=== PATIENT | female | born 1990 | race Caucasian/White ===

== ENCOUNTER 2022-10-02 20:45 | Observation (INO) ==
[2022-10-02 21:23] LABS: Partial Thromboplastin Ratio 1.1; Partial Thromboplastin Time 30.1 Seconds (21.0-31.0); Prothrombin Time 10.6 Seconds (9.0-12.0)
[2022-10-02 21:39] LABS: Basophils # (auto) 0.02 K/uL (0-0.2); Basophils % (auto) 0.2 %; Eosinophils # (auto) 0.02 K/uL (0-0.50); Eosinophils % (auto) 0.2 %; Hematocrit (blood only) 33.1 % (34.1-44.9); Hemoglobin 11.9 g/dl (12.0-16.0); Immature Granulocytes # (auto) 0.06 K/uL (0.00-0.02); Immature Granulocytes % (auto) 0.6 %; Lymphocytes # (auto) 0.64 K/uL (1.2-3.4); Lymphocytes % (auto) 6.4 %; Mean Corpuscular Hemoglobin 31.9 pg (25.0-34.0); Mean Corpuscular Volume 88.7 fL (80.0-100.0); Mean Platelet Volume 9.4 fL (9.4-12.3); Monocytes # (auto) 0.83 K/uL (0.24-0.82); Monocytes % (auto) 8.3 %; Neutrophils # (auto) 8.47 K/uL (1.4-6.5); Neutrophils % (auto) 84.3 %; Platelet Count 249 K/uL (130-400); RDW Coefficient of Variation 13.2 % (11.5-14.5); RDW Standard Deviation 42.5 fL (36.4-46.3); Red Blood Count 3.73 M/uL (3.93-5.22); Troponin I High Sensitivity 35.9 pg/ml (0-14); White Blood Count 10.04 K/ul (4.8-10.8)
[2022-10-02 21:48] LABS: Albumin Globulin Ratio 1.2 (0.9-2); BUN Creatinine Ratio 9.3 (10-20); Bilirubin,Total 0.4 mg/dl (0.2-1.0); Calcium 8.9 mg/dl (8.5-10.1); Creatinine Clr Calc Pharmacy 126.3 ml/min; Est GFR (African American) 146.8 ml/min; Est GFR (Non-African American) 126.6 ml/min; Globulin 3.3 gm/dl (2.5-4.0); Potassium 3.2 mmol/L (3.5-5.1); Total Protein 7.3 gm/dl (6.0-8.3)
--- NOTE | 2022-10-02 22:02 | Emergency Department Note ---
History of Present Illness General Chief complaint: Hyperventilation Stated complaint: SOB,CHEST PAIN,15 WKS Time Seen by Provider: 10/02/22 21:58 History of Present Illness Maximum Pain Intensity: 5 This 32-year-old female patient who is 15 weeks presents to the em ergency department for evaluation of shortness of breath, tachycardia, and chest pain. She started with cold like symptoms yesterday with cough and congestion. Temp 99F max. She states that she took Sudafed this morning at 10 am and has had a heart rate of 130 bpm most of the day. Also complaining of chest pain that feels "sort of" like heartburn that started at 2 PM today along with nausea and 1 episode of vomiting. Her heart beats faster when she goes up the steps and will feel more SOB with activity, but no SOB at rest. She rates her pain as sharp and 5/10. No history of any heart problems. Grandfather with multiple MIs with his first one in his late 60's. No first degree relatives with MIs or heart problems. No personal or family history of blood clots or bleeding disorders. She does not smoke. Denies any recent long car or plane rides or any recent injury or trauma. Her son and parents are also sick right now as well. She follows with Shalini Pierce [employer] and everything has been going well with the per patient. She denies any vaginal bleeding or pelvic pain. Denies any abdominal pain. Home Medications Medication Instructions Recorded Confirmed Type prenat.vits,hector,[id number] 1 tab PO DAILY 08/10/22 10/03/22 History acetaminophen 500 mg tablet 1,000 mg PO Q6H PRN Pain 10/03/22 10/03/22 History (Tylenol Extra Strength) pseudoephedrine HCl 120 mg 120 mg PO Q12H PRN .. 10/03/22 10/03/22 History tablet,extended release (Sudafed 12 Hour) Allergies Allergy/AdvReac Type Severity Reaction Status Date / Time Penicillins Allergy Unknown Verified 10/03/22 02:49 Past Med/Surg History Medical History (Updated 10/03/22 @ 04:13 by Milana Gallego PA-C) Hx of varicella Family History Father Anemia Cirrhosis Grandmother (Maternal) Brain cancer Grandmother (Paternal) Breast cancer Grandfather (Maternal) Heart disease Mother Hypertension Social History Smoking Status: Never smoker Hx Alcohol Use: No Hx Substance Use: No Preferred Language: Lithuanian Presales Senior Specialist Required: No Beliefs That Will Affect Care: None marital status: marital status details: Abdullahi Hussein ([phone] Current Living Situation: Spouse Current Living Situation Comment: lives with spouse, son, cats-spouse changing litter current occupational status: employed current occupation: [employer] Feels Safe at Home: Yes Assistive Devices: Glasses Review of Systems See HPI for pertinent positives & negatives. and A total of 10 systems reviewed and were otherwise negative Physical Exam Vital Signs Vital Signs - 24 hr 10/02/22 20:48 10/02/22 20:51 10/02/22 22:22 Temperature 37 C Temperature Source Temporal Artery Scan Pulse Rate 134 H Pulse Rate [Apical] 117 H Pulse Rate from SpO2 Sensor Pulse Rhythm Regular Pulse Strength Normal Respiratory Rate 18 18 Respiratory Effort / Characteristics Non-Labored Spontaneous Non-Labored Spontaneous Respiratory Depth Normal Normal Respiratory Pattern Regular Regular Blood Pressure Blood Pressure [Right Arm] 123/82 Blood Pressure Mean Blood Pressure Mean [Right Arm] 95 Blood Pressure Position Sitting Pulse Oximetry 100 99 Oxygen Delivery Method Room Air Room Air Sepsis Recent Fever Within 48 Hours Yes Sepsis New/Unexplained Change in Mental Status N/A Sepsis Action Taken by Nursing No Action Required 10/02/22 22:22 10/02/22 22:22 10/02/22 23:00 Temperature Temperature Source Pulse Rate 113 H Pulse Rate [Apical] Pulse Rate from SpO2 Sensor Pulse Rhythm Pulse Strength Respiratory Rate 18 Respiratory Effort / Characteristics Respiratory Depth Respiratory Pattern Blood Pressure 117/84 Blood Pressure [Right Arm] Blood Pressure Mean 95 Blood Pressure Mean [Right Arm] Blood Pressure Position Pulse Oximetry 98 98 Oxygen Delivery Method Room Air Sepsis Recent Fever Within 48 Hours Sepsis New/Unexplained Change in Mental Status Sepsis Action Taken by Nursing 10/02/22 23:00 10/02/22 23:10 10/02/22 23:53 Temperature Temperature Source Pulse Rate 116 H 116 H Pulse Rate [Apical] Pulse Rate from SpO2 Sensor 113 H 116 H 124 H Pulse Rhythm Pulse Strength Respiratory Rate 19 15 Respiratory Effort / Characteristics Respiratory Depth Respiratory Pattern Blood Pressure Blood Pressure [Right Arm] Blood Pressure Mean Blood Pressure Mean [Right Arm] Blood Pressure Position Pulse Oximetry 100 100 98 Oxygen Delivery Method Sepsis Recent Fever Within 48 Hours Sepsis New/Unexplained Change in Mental Status Sepsis Action Taken by Nursing 10/03/22 00:00 10/03/22 00:10 10/03/22 00:20 Temperature Temperature Source Pulse Rate Pulse Rate [Apical] Pulse Rate from SpO2 Sensor 121 H 121 H 119 H Pulse Rhythm Pulse Strength Respiratory Rate Respiratory Effort / Characteristics Respiratory Depth Respiratory Pattern Blood Pressure Blood Pressure [Right Arm] Blood Pressure Mean Blood Pressure Mean [Right Arm] Blood Pressure Position Pulse Oximetry 99 100 99 Oxygen Delivery Method Sepsis Recent Fever Within 48 Hours Sepsis New/Unexplained Change in Mental Status Sepsis Action Taken by Nursing 10/03/22 01:07 10/03/22 01:10 10/03/22 01:20 Temperature Temperature Source Pulse Rate 125 H 121 H 122 H Pulse Rate [Apical] Pulse Rate from SpO2 Sensor 127 H 124 H 126 H Pulse Rhythm Pulse Strength Respiratory Rate 17 20 Respiratory Effort / Characteristics Respiratory Depth Respiratory Pattern Blood Pressure Blood Pressure [Right Arm] Blood Pressure Mean Blood Pressure Mean [Right Arm] Blood Pressure Position Pulse Oximetry 98 100 99 Oxygen Delivery Method Sepsis Recent Fever Within 48 Hours Sepsis New/Unexplained Change in Mental Status Sepsis Action Taken by Nursing 10/03/22 01:30 10/03/22 01:30 Temperature Temperature Source Pulse Rate 120 H Pulse Rate [Apical] Pulse Rate from SpO2 Sensor 119 H Pulse Rhythm Pulse Strength Respiratory Rate 20 Respiratory Effort / Characteristics Respiratory Depth Respiratory Pattern Blood Pressure 122/74 Blood Pressure [Right Arm] Blood Pressure Mean 90 Blood Pressure Mean [Right Arm] Blood Pressure Position Pulse Oximetry 100 Oxygen Delivery Method Sepsis Recent Fever Within 48 Hours Sepsis New/Unexplained Change in Mental Status Sepsis Action Taken by Nursing VITALS: Vitals are noted on the nurse's note and reviewed by myself. GENERAL: 32-year-old female, in no acute distress, non-diaphoretic, well- developed well-nourished. SKIN: Capillary refill <2 sec. No tenting of the skin. HEAD: Normocephalic, atraumatic. EARS: External auditory canals clear, tympanic membranes pearly irvin without erythema or effusion bilaterally. EYES: PERRLA. EOMI. Conjunctivae without injection, sclerae without icterus. NOSE: Patent without discharge. MOUTH: Mucous membranes moist. Uvula midline. Airway patent. Pharynx without erythema or edema. No exudate. NECK: Supple without nuchal rigidity. No lymphadenopathy. HEART: Tachycardic without murmurs gallops or rubs. LUNGS: Clear to auscultation bilaterally without wheezes, rales or rhonchi. No retractions or accessory muscle use. ABDOMEN: Positive bowel sounds x 4. Gravid with normal tympanic percussion. Soft, nontender, without masses or organomegaly. Anand sign negative. No guarding or rebound tenderness. No focal RLQ or LLQ tenderness. MUSCULOSKELETAL: No gross musculoskeletal defects. No calf tenderness. Negative Homans' sign. NEURO: Patient was alert and oriented to person place and time. No focal neurological deficits. Course Administered Medications Lactated Ringer's (Lr) 1,000 mls @ 200 mls/hr IV .Q5H ONE Stop: 10/03/22 07:27 Last Admin: 10/03/22 02:45 Dose: 200 mls/hr Documented By: ABIOLA Magnesium Sulfate/Dextrose (Magnesium Sulfate / D5w) 1 gm in 100 mls @ 50 mls/hr IV Q2H DENICE Stop: 10/03/22 07:29 Last Admin: 10/03/22 04:04 Dose: 50 mls/hr Documented By: ABIOLA Discontinued Medications Sodium Chloride (Nss 1000ml) 1,000 mls @ 999 mls/hr IV .Q1H1M ONE Stop: 10/02/22 23:16 Last Infusion: 10/02/22 23:22 Dose: 0 mls/hr Documented By: Admin: 10/02/22 22:34 Dose: 999 mls/hr Documented By: JAMES Ioversol (Optiray 320 500ml) 105 ml IV ONCE ONE Stop: 10/03/22 01:32 Last Admin: 10/03/22 01:32 Dose: 105 ml Documented By: KEELY Ondansetron HCl (Ondansetron Inj 2 Mg/Ml 2 Ml Vial) 4 mg IV NOW STA Stop: 10/02/22 22:20 Last Admin: 10/02/22 22:34 Dose: 4 mg Documented By: JAMES Potassium Chloride (Potassium Chloride Pwd 20 Meq Pack) 40 meq PO NOW STA Stop: 10/03/22 02:23 Last Admin: 10/03/22 02:45 Dose: 40 meq Documented By: ABIOLA Potassium Chloride (Potassium Chloride Pwd 20 Meq Pack) 40 meq PO ONE ONE Stop: 10/03/22 04:01 Last Admin: 10/03/22 04:04 Dose: 40 meq Documented By: ABIOLA Medical Decision Making Differential Diagnosis Differential diagnosis includes angina, MA, pericarditis, myocarditis, aortic dissection, pleurisy, pneumothorax, PE, pneumonia, pneumomediastinum, esophagitis, esophageal spasm, GERD, perforated esophagus, perforated duodenal/gastric ulcer, pancreatitis, cholecystitis, costochondritis, musculoskeletal, bronchitis, URI, COVID, influenza, RSV, or others. Laboratory Data Attestation: I reviewed the patient's lab results. Result diagrams: 10/02/22 21:00 10/02/22 21:00 Lab Results 10/02/22 10/02/22 10/02/22 Range/Units 21:00 21:00 21:00 WBC 10.04 (4.8-10.8) K/ul RBC 3.73 L (3.93-5.22) M/uL Hgb 11.9 L (12.0-16.0) g/dl Hct 33.1 L (34.1-44.9) % MCV 88.7 (80.0-100.0) fL MCH 31.9 (25.0-34.0) pg MCHC 36.0 (32.0-36.0) g/dL RDW Std Deviation 42.5 (36.4-46.3) fL RDW Coeff of Marie 13.2 (11.5-14.5) % Plt Count 249 (130-400) K/uL MPV 9.4 (9.4-12.3) fL Immature Gran % (Auto) 0.6 % Neut % (Auto) 84.3 % Lymph % (Auto) 6.4 % [place] % (Auto) 8.3 % Eos % (Auto) 0.2 % Baso % (Auto) 0.2 % Neut # (Auto) 8.47 H (1.4-6.5) K/uL Lymph # (Auto) 0.64 L (1.2-3.4) K/uL [place] # (Auto) 0.83 H (0.24-0.82) K/uL Eos # (Auto) 0.02 (0-0.50) K/uL Baso # (Auto) 0.02 (0-0.2) K/uL Immature Gran # (Auto) 0.06 H (0.00-0.02) K/uL PT 10.6 (9.0-12.0) Seconds INR 1.0 (0.9-1.1) APTT 30.1 (21.0-31.0) Seconds PTT Ratio 1.1 D-Dimer (0-500) ug/L FEU Sodium 132 L (136-145) mmol/L Potassium 3.2 L (3.5-5.1) mmol/L Chloride 101 (98-107) mmol/L Carbon Dioxide 22 (21-32) mmol/L Anion Gap 9 (3-11) BUN 5 L (6-23) mg/dl Creatinine 0.54 L (0.6-1.2) mg/dl Est Cr Clr Drug Dosing 126.3 ml/min Est GFR ( Amer) 146.8 ml/min Est GFR (Non-Af Amer) 126.6 ml/min BUN/Creatinine Ratio 9.3 L (10-20) Glucose 109 H (70-99(Fasting)) mg/dl Calcium 8.9 (8.5-10.1) mg/dl Magnesium (1.7-2.4) mg/dl Total Bilirubin 0.4 (0.2-1.0) mg/dl AST 13 (13-39) U/L ALT 10 (7-52) U/L Alkaline Phosphatase 39 (34-104) U/L Troponin I High Sens 35.9 H (0-14) pg/ml Total Protein 7.3 (6.0-8.3) gm/dl Albumin 4.0 (3.4-5.0) gm/dl Globulin 3.3 (2.5-4.0) gm/dl Albumin/Globulin Ratio 1.2 (0.9-2) TSH (0.300-4.500) uIu/ml Urine Color Urine Appearance (Clear) Urine pH (4.5-7.5) Ur Specific [place] (1.000-1.030) Urine Protein (Negative) Urine Glucose (UA) (Negative) Urine Ketones (Negative) Urine Blood (Negative) Urine Nitrite (Negative) Urine Bilirubin (Negative) Urine Urobilinogen (Negative) Ur Leukocyte Esterase (Negative) Urine WBC (Auto) (0-5) /hpf Urine RBC (Auto) (0-4) /hpf U Hyaline Cast (Auto) (0-5) /lpf U Epithel Cells (Auto) (0-5) /lpf Urine Bacteria (Auto) (Negative) SARS-CoV-2 (PCR) (Negative) Influenza Type A (PCR) (Neg) Influenza Type B (PCR) (Neg) RSV (RT-PCR) (Neg) 10/02/22 10/02/22 10/02/22 Range/Units 21:00 22:30 22:41 WBC (4.8-10.8) K/ul RBC (3.93-5.22) M/uL Hgb (12.0-16.0) g/dl Hct (34.1-44.9) % MCV (80.0-100.0) fL MCH (25.0-34.0) pg MCHC (32.0-36.0) g/dL RDW Std Deviation (36.4-46.3) fL RDW Coeff of Marie (11.5-14.5) % Plt Count (130-400) K/uL MPV (9.4-12.3) fL Immature Gran % (Auto) % Neut % (Auto) % Lymph % (Auto) % [place] % (Auto) % Eos % (Auto) % Baso % (Auto) % Neut # (Auto) (1.4-6.5) K/uL Lymph # (Auto) (1.2-3.4) K/uL [place] # (Auto) (0.24-0.82) K/uL Eos # (Auto) (0-0.50) K/uL Baso # (Auto) (0-0.2) K/uL Immature Gran # (Auto) (0.00-0.02) K/uL PT (9.0-12.0) Seconds INR (0.9-1.1) APTT (21.0-31.0) Seconds PTT Ratio D-Dimer 690 H* (0-500) ug/L FEU Sodium (136-145) mmol/L Potassium (3.5-5.1) mmol/L Chloride (98-107) mmol/L Carbon Dioxide (21-32) mmol/L Anion Gap (3-11) BUN (6-23) mg/dl Creatinine (0.6-1.2) mg/dl Est Cr Clr Drug Dosing ml/min Est GFR ( Amer) ml/min Est GFR (Non-Af Amer) ml/min BUN/Creatinine Ratio (10-20) Glucose (70-99(Fasting)) mg/dl Calcium (8.5-10.1) mg/dl Magnesium (1.7-2.4) mg/dl Total Bilirubin (0.2-1.0) mg/dl AST (13-39) U/L ALT (7-52) U/L Alkaline Phosphatase (34-104) U/L Troponin I High Sens (0-14) pg/ml Total Protein (6.0-8.3) gm/dl Albumin (3.4-5.0) gm/dl Globulin (2.5-4.0) gm/dl Albumin/Globulin Ratio (0.9-2) TSH 1.164 (0.300-4.500) uIu/ml Urine Color Urine Appearance (Clear) Urine pH (4.5-7.5) Ur Specific [place] (1.000-1.030) Urine Protein (Negative) Urine Glucose (UA) (Negative) Urine Ketones (Negative) Urine Blood (Negative) Urine Nitrite (Negative) Urine Bilirubin (Negative) Urine Urobilinogen (Negative) Ur Leukocyte Esterase (Negative) Urine WBC (Auto) (0-5) /hpf Urine RBC (Auto) (0-4) /hpf U Hyaline Cast (Auto) (0-5) /lpf U Epithel Cells (Auto) (0-5) /lpf Urine Bacteria (Auto) (Negative) SARS-CoV-2 (PCR) POSITIVE A* (Negative) Influenza Type A (PCR) Negative (Neg) Influenza Type B (PCR) Negative (Neg) RSV (RT-PCR) Negative (Neg) 10/02/22 10/02/22 10/03/22 Range/Units 22:41 22:41 Unknown WBC (4.8-10.8) K/ul RBC (3.93-5.22) M/uL Hgb (12.0-16.0) g/dl Hct (34.1-44.9) % MCV (80.0-100.0) fL MCH (25.0-34.0) pg MCHC (32.0-36.0) g/dL RDW Std Deviation (36.4-46.3) fL RDW Coeff of Marie (11.5-14.5) % Plt Count (130-400) K/uL MPV (9.4-12.3) fL Immature Gran % (Auto) % Neut % (Auto) % Lymph % (Auto) % [place] % (Auto) % Eos % (Auto) % Baso % (Auto) % Neut # (Auto) (1.4-6.5) K/uL Lymph # (Auto) (1.2-3.4) K/uL [place] # (Auto) (0.24-0.82) K/uL Eos # (Auto) (0-0.50) K/uL Baso # (Auto) (0-0.2) K/uL Immature Gran # (Auto) (0.00-0.02) K/uL PT (9.0-12.0) Seconds INR (0.9-1.1) APTT (21.0-31.0) Seconds PTT Ratio D-Dimer (0-500) ug/L FEU Sodium (136-145) mmol/L Potassium (3.5-5.1) mmol/L Chloride (98-107) mmol/L Carbon Dioxide (21-32) mmol/L Anion Gap (3-11) BUN (6-23) mg/dl Creatinine (0.6-1.2) mg/dl Est Cr Clr Drug Dosing ml/min Est GFR ( Amer) ml/min Est GFR (Non-Af Amer) ml/min BUN/Creatinine Ratio (10-20) Glucose (70-99(Fasting)) mg/dl Calcium (8.5-10.1) mg/dl Magnesium 1.5 L (1.7-2.4) mg/dl Total Bilirubin (0.2-1.0) mg/dl AST (13-39) U/L ALT (7-52) U/L Alkaline Phosphatase (34-104) U/L Troponin I High Sens 70.4 H* D (0-14) pg/ml Total Protein (6.0-8.3) gm/dl Albumin (3.4-5.0) gm/dl Globulin (2.5-4.0) gm/dl Albumin/Globulin Ratio (0.9-2) TSH (0.300-4.500) uIu/ml Urine Color Yellow Urine Appearance Clear (Clear) Urine pH 6.5 (4.5-7.5) Ur Specific [place] 1.004 (1.000-1.030) Urine Protein Negative (Negative) Urine Glucose (UA) Negative (Negative) Urine Ketones 1+ H (Negative) Urine Blood Negative (Negative) Urine Nitrite Negative (Negative) Urine Bilirubin Negative (Negative) Urine Urobilinogen Negative (Negative) Ur Leukocyte Esterase Trace H (Negative) Urine WBC (Auto) 1-5 (0-5) /hpf Urine RBC (Auto) 0-4 (0-4) /hpf U Hyaline Cast (Auto) 0 (0-5) /lpf U Epithel Cells (Auto) 20-30 H (0-5) /lpf Urine Bacteria (Auto) Negative (Negative) SARS-CoV-2 (PCR) (Negative) Influenza Type A (PCR) (Neg) Influenza Type B (PCR) (Neg) RSV (RT-PCR) (Neg) Imaging Data Radiologist's Impression: Venous Doppler Study 10/02/22 22:16 ULTRASOUND BILATERAL LOWER EXTREMITY VENOUS CLINICAL HISTORY: Atypical chest pain. Dyspnea. . Clinical concern for deep venous thrombosis. COMPARISON STUDY: No priors. TECHNIQUE: Real-time, grayscale, and color Doppler sonography of the deep veins of the right and left lower extremity was performed from the inguinal crease to the calf. Compression and augmentation were utilized. FINDINGS: There is no sonographic evidence of deep venous thrombosis identified in the right or left lower extremity. The common femoral, superficial femoral, and popliteal veins are patent and normally compressible bilaterally. The greater saphenous vein and the profunda femoris vein at the junction with the common femoral vein are clear in both legs. The visualized calf veins are patent bilaterally. IMPRESSION: There is no sonographic evidence of deep venous thrombosis identified in the right or left lower extremity. ACT 112: Negative or not required by law. Electronically signed by: Everette Peñaloza M.D. 10/02/2022 11:52 PM Preliminary Findings Only See Final Report For Complete Findings CT CHEST With Contrast: There is reasonable opacification of the pulmonary arterial tree, no central pulmonary arterial filling defect is seen. There is no dense focal consolidation, pleural effusion, or pneumothorax. No acute pathology is identified thorax. Radiologist: Jeramy Elizalde MD Study ready at 01:38 and initial results transmitted at 01:46 MDM Narrative I examined the patient. She was given 1 L normal saline solution bolus as well as Zofran 4 mg IV. EKG was interpreted by myself as sinus tachycardia at [address] or T wave changes. Continuous shelter monitor: Order was placed for continuous shelter monitor. Patient was placed on the shelter monitor and continuous pulse ox. Patient was noted to be in normal sinus rhythm at an initial rate of 128 bpm. heart tones 164. Hemoglobin slightly low at 11.9, but CBC otherwise without significant abnormalities. Coags normal. Sodium and potassium low at 132 and 3.2. CMP otherwise essentially unremarkable. Initial high-sensitivity troponin elevated at 35.9 with a 2-hour repeat increased at 70.4. D-dimer elevated at 690. I had a meaningful discussion about this patient with Dr. Hui who agrees with my assessment and the treatment plan. Ultrasound of the bilateral lower extremities were negative for DVT. CT scan of the chest with contrast was negative for PE. The patient was positive for COVID, but negative for RSV and influenza. The patient's heart rate continued to remain in the 120s during her stay. She still complained of some shortness of breath and nasal congestion, but the chest pain did improve after the Zofran and fluids. I spoke with the on-call hospitalist who agreed to admit the patient for further evaluation and treatment. Please refer to their dictation for further details. The patient's care was transferred to the hospitalist in stable condition. Impression & Plan COVID-19, Elevated troponin, Elevated d-dimer, SOB (shortness of breath), Chest pain, Tachycardia, 15 weeks gestation of Discharge Plan Visit Data Chief Complaint: Hyperventilation Stated Complaint: SOB,CHEST PAIN,15 WKS ED Provider: Jeffry Hui ED Midlevel Provider: Milana Gallego Discharge Problem: COVID-19, Elevated troponin, Elevated d-dimer, SOB (shortness of breath), Chest pain, Tachycardia, 15 weeks gestation of Patient Disposition: Admitted As Inpatient Condition: Good Prescriptions Prescriptions: No Action prenat.vits,hector,[id number] Tablet 1 tab PO DAILY pseudoephedrine HCl [Sudafed 12 Hour] 120 mg Tablet Extended Release 120 mg PO Q12H PRN (Reason: ..) acetaminophen [Tylenol Extra Strength] 500 mg Tablet 1,000 mg PO Q6H PRN (Reason: Pain) Referrals Referrals: Ruma Sears DO [Primary Care Provider] - : Chest pain Qualifiers: Chest pain type: unspecified Qualified Code(s): R07.9 - Chest pain, unspecified
[2022-10-02] MEDS ORDERED: SODIUM CHLORIDE 0.9% 1000ML 1,000 ML IV ONE (22:16)
[2022-10-02] MEDS ORDERED: ONDANSETRON INJ 2 MG/ML 2 ML VIAL IV STA (22:19)
[2022-10-02 23:25] LABS: D Dimer 690 ug/L FEU (0-500)
--- NOTE | 2022-10-02 23:54 | Ultrasound Report ---
ULTRASOUND BILATERAL LOWER EXTREMITY VENOUS CLINICAL HISTORY: Atypical chest pain. Dyspnea. . Clinical concern for deep venous thrombosis . COMPARISON STUDY: No priors. TECHNIQUE: Real-time, grayscale, and color Doppler sonography of the deep veins of the right and left lower extremity was performed from the inguinal crease to the calf. Compression and augmentation wer e utilized. FINDINGS: There is no sonographic evidence of deep venous thrombosis identified in the right or left lower extremity. The common femoral, superficial femoral, and popliteal veins are patent and normally compressible bilaterally. The greater saphenous vein and the profunda femoris vein at the junction w ith the common femoral vein are clear in both legs. The visualized calf veins are patent bilaterally. IMPRESSION: There is no sonographic evidence of deep venous thrombosis identified in the right or lef t lower extremity. ACT 112: Negative or not required by law. Electronically signed by: Everette Peñaloza M.D. 10/02/2022 11:52 PM
[2022-10-03 00:38] LABS: Appearance Urine Clear (Clear); Bacteria Urine Automated Negative (Negative); Bilirubin Urine Negative (Negative); Blood Urine Negative (Negative); Cast Urine Automated 0 /lpf (0-5); Color Urine Yellow; Epithelial Cell Urine Auto 20-30 /lpf (0-5); Glucose Urine UA Negative (Negative); Ketones Urine 1+ (Negative); Leukocyte Esterase Urine Trace (Negative); Nitrite Urine Negative (Negative); Protein Urine Negative (Negative); RBC Urine Automated 0-4 /hpf (0-4); Specific Gravity Urine 1.004 (1.000-1.030); Urobilinogen Urine Negative (Negative); pH Urine 6.5 (4.5-7.5)
[2022-10-03] MEDS ORDERED: OPTIRAY 320 500ml IV ONE (01:31)
[2022-10-03 02:04] LABS: Influenza A virus by PCR Negative (Neg); Influenza B virus by PCR Negative (Neg); RSV by PCR Negative (Neg)
[2022-10-03 02:16] LABS: SARS CoV2 RNA(COVID-19) Ceph POSITIVE (Negative)
[2022-10-03] MEDS ORDERED: POTASSIUM CHLORIDE PWD 20 MEQ PACK PO STA (02:22)
[2022-10-03] MEDS ORDERED: LACTATED RINGER'S 1,000 ML IV ONE (02:28)
--- NOTE | 2022-10-03 02:28 | History & Physical Report ---
Date of Service October 03, 2022 Assessment & Plan (1) Chest pain: Plan: Chest pain secondary to tachycardia secondary to clinical dehydration from COVID-19 illness and decongestant intake Troponin elevation secondary to above Hypokalemia secondary to decreased p.o. intake, emesis secondary to viral illness 16 weeks AOG OBS PCU Follow troponin TTE Supportive management for patient's COVID 19 illness Patient counseled to avoid adrenergic containing decongestant preparations such as Sudafed given sensitivity and propensity for tachycardia IVF, replace electrolytes OB consult Re: check DVT prophylaxis. SCDs Full code Text document was generated using [employer] voice recognition software. It may contain grammatical or spelling errors. Kindly contact undersigned for clarification of any documentation item in question. History of Present Illness Chief Complaint: Chest Pain, shortness of breath Primary Care Provider: Ruma Sears, History obtained from patient, family, and records. No significant medical history. Patient currently at 16 weeks AOG. Last confinement under service July 2020 for term status post vaginal delivery. 2 days history of cold symptoms, dry cough and congestion. Poor appetite Sick family contacts. Patient completed COVID-19 vaccination. Yesterday morning, patient took 1 dose of Sudafed for congestion. Patient later noted heartburn like chest pain associated with shortness of breath and palpitations. Nausea, emesis at the emergency room. 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 Required: No Beliefs That Will Affect Care: None marital status: marital status details: Abdullahi Hussein (35) [phone] Current Living Situation: Spouse Current Living Situation Comment: lives with spouse, son, cats-spouse changing litter current occupational status: employed 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 Feels Safe at Home: Yes Assistive Devices: Glasses Review of Systems Review of Systems: As per HPI, all other systems reviewed and negative Physical Exam Physical Exam: GENERAL: Comfortable, pleasant, no respiratory distress SKIN: Pallor, warm HEENT: Bespectacled, pale palpebral conjunctivae, no ptosis, dry buccal mucosa NECK : Supple, no tenderness CHEST : CTA, no tenderness HEART : Tachycardic, no obvious murmurs ABDOMEN: Some distention, nontender EXTREMITIES : No LE swelling/tenderness, no other conspicuous deformities noted NEUROLOGIC : Coherent, no facial asymmetry, no other gross focality Results & Data Results & Data ([facility]) Vital Signs (Past 12 Hours) Vital Signs Temp Pulse Pulse Resp BP BP Pulse Ox 10/03/22 01:30 120 H 20 100 10/03/22 01:30 122/74 10/03/22 01:20 122 H 20 99 10/03/22 01:10 121 H 17 100 10/03/22 01:07 125 H 98 10/03/22 00:20 99 10/03/22 00:10 100 10/03/22 00:00 99 10/02/22 23:53 98 10/02/22 23:10 116 H 15 100 10/02/22 23:00 116 H 19 100 10/02/22 23:00 117/84 10/02/22 22:22 113 H 18 98 10/02/22 22:22 98 10/02/22 22:22 117 H 18 123/82 99 10/02/22 20:51 10/02/22 20:48 37 C 134 H 18 100 O2 Del Method 10/03/22 01:30 10/03/22 01:30 10/03/22 01:20 10/03/22 01:10 10/03/22 01:07 10/03/22 00:20 10/03/22 00:10 10/03/22 00:00 10/02/22 23:53 10/02/22 23:10 10/02/22 23:00 10/02/22 23:00 10/02/22 22:22 10/02/22 22:22 Room Air 10/02/22 22:22 10/02/22 20:51 Room Air 10/02/22 20:48 Room Air Laboratory Results Laboratory Results WBC 10.04 K/ul (4.8-10.8) 10/02/22 21:00 RBC 3.73 M/uL (3.93-5.22) L 10/02/22 21:00 Hgb 11.9 g/dl (12.0-16.0) L 10/02/22 21:00 Hct 33.1 % (34.1-44.9) L 10/02/22 21:00 MCV 88.7 fL (80.0-100.0) 10/02/22 21:00 MCH 31.9 pg (25.0-34.0) 10/02/22 21:00 MCHC 36.0 g/dL (32.0-36.0) 10/02/22 21:00 RDW Std Deviation 42.5 fL (36.4-46.3) 10/02/22 21:00 RDW Coeff of Marie 13.2 % (11.5-14.5) 10/02/22 21:00 Plt Count 249 K/uL (130-400) 10/02/22 21:00 MPV 9.4 fL (9.4-12.3) 10/02/22 21:00 Immature Gran % (Auto) 0.6 % 10/02/22 21:00 Neut % (Auto) 84.3 % 10/02/22 21:00 Lymph % (Auto) 6.4 % 10/02/22 21:00 [place] % (Auto) 8.3 % 10/02/22 21:00 Eos % (Auto) 0.2 % 10/02/22 21:00 Baso % (Auto) 0.2 % 10/02/22 21:00 Neut # (Auto) 8.47 K/uL (1.4-6.5) H 10/02/22 21:00 Lymph # (Auto) 0.64 K/uL (1.2-3.4) L 10/02/22 21:00 [place] # (Auto) 0.83 K/uL (0.24-0.82) H 10/02/22 21:00 Eos # (Auto) 0.02 K/uL (0-0.50) 10/02/22 21:00 Baso # (Auto) 0.02 K/uL (0-0.2) 10/02/22 21:00 Immature Gran # (Auto) 0.06 K/uL (0.00-0.02) H 10/02/22 21:00 PT 10.6 Seconds (9.0-12.0) 10/02/22 21:00 INR 1.0 (0.9-1.1) 10/02/22 21:00 APTT 30.1 Seconds (21.0-31.0) 10/02/22 21:00 PTT Ratio 1.1 10/02/22 21:00 D-Dimer 690 ug/L FEU (0-500) H* 10/02/22 22:41 Sodium 132 mmol/L (136-145) L 10/02/22 21:00 Potassium 3.2 mmol/L (3.5-5.1) L 10/02/22 21:00 Chloride 101 mmol/L (98-107) 10/02/22 21:00 Carbon Dioxide 22 mmol/L (21-32) 10/02/22 21:00 Anion Gap 9 (3-11) 10/02/22 21:00 BUN 5 mg/dl (6-23) L 10/02/22 21:00 Creatinine 0.54 mg/dl (0.6-1.2) L 10/02/22 21:00 Est Cr Clr Drug Dosing 126.3 ml/min 10/02/22 21:00 Est GFR ( Amer) 146.8 ml/min 10/02/22 21:00 Est GFR (Non-Af Amer) 126.6 ml/min 10/02/22 21:00 BUN/Creatinine Ratio 9.3 (10-20) L 10/02/22 21:00 Glucose 109 mg/dl (70-99(Fasting)) H 10/02/22 21:00 Calcium 8.9 mg/dl (8.5-10.1) 10/02/22 21:00 Total Bilirubin 0.4 mg/dl (0.2-1.0) 10/02/22 21:00 AST 13 U/L (13-39) 10/02/22 21:00 ALT 10 U/L (7-52) 10/02/22 21:00 Alkaline Phosphatase 39 U/L (34-104) 10/02/22 21:00 Troponin I High Sens 70.4 pg/ml (0-14) H* D 10/02/22 22:41 Total Protein 7.3 gm/dl (6.0-8.3) 10/02/22 21:00 Albumin 4.0 gm/dl (3.4-5.0) 10/02/22 21:00 Globulin 3.3 gm/dl (2.5-4.0) 10/02/22 21:00 Albumin/Globulin Ratio 1.2 (0.9-2) 10/02/22 21:00 Urine Color Yellow 10/03/22 Unknown Urine Appearance Clear (Clear) 10/03/22 Unknown Urine pH 6.5 (4.5-7.5) 10/03/22 Unknown Ur Specific [place] 1.004 (1.000-1.030) 10/03/22 Unknown Urine Protein Negative (Negative) 10/03/22 Unknown Urine Glucose (UA) Negative (Negative) 10/03/22 Unknown Urine Ketones 1+ (Negative) H 10/03/22 Unknown Urine Blood Negative (Negative) 10/03/22 Unknown Urine Nitrite Negative (Negative) 10/03/22 Unknown Urine Bilirubin Negative (Negative) 10/03/22 Unknown Urine Urobilinogen Negative (Negative) 10/03/22 Unknown Ur Leukocyte Esterase Trace (Negative) H 10/03/22 Unknown Urine WBC (Auto) 1-5 /hpf (0-5) 10/03/22 Unknown Urine RBC (Auto) 0-4 /hpf (0-4) 10/03/22 Unknown U Hyaline Cast (Auto) 0 /lpf (0-5) 10/03/22 Unknown U Epithel Cells (Auto) 20-30 /lpf (0-5) H 10/03/22 Unknown Urine Bacteria (Auto) Negative (Negative) 10/03/22 Unknown SARS-CoV-2 (PCR) POSITIVE (Negative) A* 10/02/22 22:30 Influenza Type A (PCR) Negative (Neg) 10/02/22 22:30 Influenza Type B (PCR) Negative (Neg) 10/02/22 22:30 RSV (RT-PCR) Negative (Neg) 10/02/22 22:30 Impressions Venous Doppler Study 10/02/22 22:16 ULTRASOUND BILATERAL LOWER EXTREMITY VENOUS CLINICAL HISTORY: Atypical chest pain. Dyspnea. . Clinical concern for deep venous thrombosis. COMPARISON STUDY: No priors. TECHNIQUE: Real-time, grayscale, and color Doppler sonography of the deep veins of the right and left lower extremity was performed from the inguinal crease to the calf. Compression and augmentation were utilized. FINDINGS: There is no sonographic evidence of deep venous thrombosis identified in the right or left lower extremity. The common femoral, superficial femoral, and popliteal veins are patent and normally compressible bilaterally. The greater saphenous vein and the profunda femoris vein at the junction with the common femoral vein are clear in both legs. The visualized calf veins are patent bilaterally. IMPRESSION: There is no sonographic evidence of deep venous thrombosis identified in the right or left lower extremity. ACT 112: Negative or not required by law. Electronically signed by: Everette Peñaloza M.D. 10/02/2022 11:[address] chest initial read: There is reasonable opacification of the pulmonaryarterial tree, no central pulmonaryarterial filling defect is seen. There is no dense focal consolidation, pleural effusion, or pneumothorax. No acute pathologyis identified thorax EKG as per my interpretation :Rate 30, sinus tachycardia, normal axis, T wave flattening septal leads (1) Chest pain Chest pain type: unspecified Qualified Code(s): R07.9 - Chest pain, unspecified
[2022-10-03] MEDS ORDERED: SODIUM CHLORIDE 0.65% NA SOLN 45 ML (OCEAN) ONE (03:12)
[2022-10-03] MEDS ORDERED: SODIUM CHLORIDE 0.65% NA SOLN 45 ML (OCEAN) PRN (03:12)
[2022-10-03] MEDS ORDERED: POTASSIUM CHLORIDE PWD 20 MEQ PACK PO ONE (04:00)
[2022-10-03] MEDS: MAGNESIUM SULFATE / D5W 1 GM/100 ML BAG IV SCH ×2 (04:04→06:28)
[2022-10-03 05:39] LABS: Basophils # (auto) 0.03 K/uL (0-0.2); Basophils % (auto) 0.3 %; Eosinophils # (auto) 0.01 K/uL (0-0.50); Eosinophils % (auto) 0.1 %; Hematocrit (blood only) 31.3 % (34.1-44.9); Hemoglobin 10.9 g/dl (12.0-16.0); Immature Granulocytes # (auto) 0.06 K/uL (0.00-0.02); Immature Granulocytes % (auto) 0.6 %; Lymphocytes # (auto) 0.98 K/uL (1.2-3.4); Lymphocytes % (auto) 10.6 %; Mean Corpuscular Hemoglobin 31.7 pg (25.0-34.0); Mean Corpuscular Hgb Conc 34.8 g/dL (32.0-36.0); Mean Platelet Volume 9.2 fL (9.4-12.3); Monocytes # (auto) 0.72 K/uL (0.24-0.82); Monocytes % (auto) 7.8 %; Neutrophils # (auto) 7.46 K/uL (1.4-6.5); Neutrophils % (auto) 80.6 %; Platelet Count 229 K/uL (130-400); RDW Coefficient of Variation 13.4 % (11.5-14.5); RDW Standard Deviation 44.2 fL (36.4-46.3); Red Blood Count 3.44 M/uL (3.93-5.22); White Blood Count 9.26 K/ul (4.8-10.8)
[2022-10-03 06:02] LABS: Anion Gap 6 (3-11); BUN Creatinine Ratio 8.2 (10-20); Blood Urea Nitrogen 4 mg/dl (6-23); Calcium 8.7 mg/dl (8.5-10.1); Carbon Dioxide 22 mmol/L (21-32); Chloride 108 mmol/L (98-107); Creatinine Clr Calc Pharmacy 139.2 ml/min; Est GFR (African American) > 150.0 ml/min; Est GFR (Non-African American) 130.7 ml/min; Glucose 116 mg/dl (70-99(Fasting)); Magnesium 2.2 mg/dl (1.7-2.4); Sodium 136 mmol/L (136-145)
[2022-10-03] MEDS ORDERED: SODIUM CHLORIDE 0.9% 1000ML 1,000 ML IV ONE (06:09)
[2022-10-03] MEDS ORDERED: ONDANSETRON INJ 2 MG/ML 2 ML VIAL IV PRN (07:24)
[2022-10-03] MEDS ORDERED: ACETAMINOPHEN 325 MG TAB PO PRN (07:24)
--- NOTE | 2022-10-03 08:02 | CT Scan Report ---
CHEST CTA for PULMONARY ARTERIES CT DOSE: 368.51 mGycm HISTORY: Elev D-dimer/troponin, chest pain/SOB, 15 wk preg TECHNIQUE: Multiaxial CT images of the chest were performed following the intravenous administration of contrast to evaluate the pulmonary arteries. Maximal intensity projection images were also obtaine d. A dose lowering technique was utilized adhering to the principles of ALARA. COMPARISON STUDY: None. FINDINGS: There is a normal caliber thoracic aorta with no evidence for dissection. There is no evide nce for pulmonary embolus. No pleural effusions. No pneumothorax. The liver and spleen are unremarkab le. No mediastinal or hilar lymphadenopathy. The central airways are patent. The lungs are clear. Mil d circumferential thickening of the upper to mid esophagus. IMPRESSION: 1. No evidence for pulmonary embolus. 2. Questionable mild circumferential thickening of the upper to mid esophagus. This could represent a mild esophagitis. ACT 112: Negative or not required by law. Electronically signed by: Jaspreet Tyson M.D. 10/03/2022 8:01 AM
--- NOTE | 2022-10-03 08:21 | Consultation ---
Date of Consultation October 03, 2022 Assessment & Plan (1) with 15 completed weeks gestation: (2) COVID-19: Plan Patient has no associated issues at this point. heart tones last night and today are wnl. Patient does not need Qshift fht and this order was canceled by me. Please notify team if anything comes up. Will sign off from an ob standpoint at this time unless changes. she has appt in the office on Tuesday, but will need to postpone because of her covid illness. Instructed to call the office when she gets home. Medical decision making for her covid illness will be managed by her primary admitting team. I see she is having a cards consult secondary to her elevated troponins. IN covid , recommend pulse ox remain at 95% or above. Ok for paxlovid if felt to be clinically indicated. Tylenol only for fever control, nsaids contraindicated. IVF hydration for dehydration. Please call with questions or concerns. thank you. History of Present Illness Requesting Physician: Dr. Garcia Reason for Consultation: with covid Attending Physician: Don Kaiser MD History of Present Illness Patient is a 32yowf with iup at 15 5/7 weeks who called me method consultant last night. She noted cold symptoms for the last day and had taken a sudafed that morning. She then noted tachycardia all day and started to have chest pain and more sob in the evening. She has sick contacts at home. I referred her to the ED. She has been diagnosed with covid and being admitted for observation. She has EKG with sinus tach. Lower extremity doppler negative for DVT, chest CT negative for PE. D-dimer likely elevated because of . Slightly anemic likely secondary to . Troponins elevated. Patient notes no associated symptoms. No vb or cramping. Has not felt fm yet. and Delivery Plans Flu shot given 08/20/22 Past Pregnancies Del. Date GA wks Lbr Lgth wt Sex Type del Anes Place Del Prov ? Comment 07/04/20 39 6lb 13.9oz M Ep idural [facility] Dr. [place] No OB Labs: Blood Type O Positive 08/20/22 Antibody Screen NEGATIVE 08/20/22 Hemoglobin 12.0 g/dl (12.0-16.0) 08/20/22 Hematocrit 34.2 % (34.1-44.9) 08/20/22 Mean Corpuscular Volume 88.6 fL (80.0-100.0) 08/20/22 Platelet Count 354 K/uL (130-400) 08/20/22 Rubella IgG Antibody Immune (Immune) 08/20/22 Rapid Plasma Reagin Nonreactive (Nonreactive) 08/20/22 Hepatitis B Surface Antigen. NON-REACTIVE (NON-REACTIVE) 08/20/22 Hepatitis C Antibody (EIA) NON-REACTIVE (NON-REACTIVE) 08/20/22 HIV (1&2) Ag and Ab Confirmation NON-REACTIVE (NON-REACTIVE) 08/20/22 Glucose 1 Hour 50 gm Load 121 mg/dl (70-130) 04/17/20 OB Optional Labs: Chlamydia trachomatis RNA Not Detected (NotDetected) 08/20/22 Neisseria gonorrhoeae RNA Not Detected (NotDetected) 08/20/22 low risk panorama Allergies Allergy/AdvReac Type Severity Reaction Status Date / Time Penicillins Allergy Unknown Verified 10/03/22 02:49 pseudoephedrine AdvReac Intermediate Tachycardia Verified 10/03/22 05:03 [From Sudafed] Home Medications Medication Instructions Recorded Confirmed Type prenat.vits,hector,vui-kzaw-wgvkc 1 tab PO DAILY 08/10/22 10/03/22 History acetaminophen 500 mg tablet 1,000 mg PO Q6H PRN Pain 10/03/22 10/03/22 History (Tylenol Extra Strength) pseudoephedrine HCl 120 mg 120 mg PO Q12H PRN .. 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 Beliefs That Will Affect Care: None marital status: marital status details: Abdullahi Hussein (35) [phone] Current Living Situation: Spouse Current Living Situation Comment: lives with spouse, son, cats-spouse changing litter current occupational status: employed 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 Feels Safe at Home: Yes Assistive Devices: Glasses Review of Systems Review of Systems: All systems reviewed & are unremarkable except as noted in HPI & below Physical Exam Constitutional: WD/WN, vitals as above Neck: trachea midline, no thyromegaly Cardiovascular: Rate/Rhythm: + tachycardic Extremities: no calf tenderness and no edema Gastrointestinal (Abdomen): soft, nt, nd no uterine tenderness Doppler fht 160s Skin: no rashes, warm and dry Psychiatric: A+Ox3, euthymic affect Results & Data ([facility]) Vital Signs (Past 12 Hours) Vital Signs Temp Pulse Pulse Resp BP BP Pulse Ox 10/03/22 05:40 108 H 16 10/03/22 05:30 119 H 14 10/03/22 05:20 109 H 15 10/03/22 05:10 109 H 20 10/03/22 05:00 110 H 19 10/03/22 04:50 116 H 16 10/03/22 04:40 110 H 17 10/03/22 04:30 107 H 14 10/03/22 04:20 109 H 18 10/03/22 04:10 110 H 14 10/03/22 04:00 114 H 23 10/03/22 03:50 119 H 18 98 10/03/22 03:40 112 H 15 97 10/03/22 03:30 120 H 19 98 10/03/22 03:20 114 H 14 98 10/03/22 03:10 121 H 15 100 10/03/22 03:00 119 H 15 100 10/03/22 02:50 124 H 22 99 10/03/22 02:40 121 H 14 99 10/03/22 02:30 92 10/03/22 02:20 112 H 14 97 10/03/22 02:10 120 H 16 98 10/03/22 02:00 117 H 20 97 10/03/22 02:00 120/74 10/03/22 01:50 119 H 15 98 10/03/22 01:40 121 H 16 98 10/03/22 01:30 120 H 20 100 10/03/22 01:30 122/74 10/03/22 01:20 122 H 20 99 10/03/22 01:10 121 H 17 100 10/03/22 01:07 125 H 98 10/03/22 00:20 99 10/03/22 00:10 100 10/03/22 00:00 99 10/02/22 23:53 98 10/02/22 23:10 116 H 15 100 10/02/22 23:00 116 H 19 100 10/02/22 23:00 117/84 10/02/22 22:22 113 H 18 98 10/02/22 22:22 98 10/02/22 22:22 117 H 18 123/82 99 10/02/22 20:51 10/02/22 20:48 37 C 134 H 18 100 O2 Del Method 10/03/22 05:40 10/03/22 05:30 10/03/22 05:20 10/03/22 05:10 10/03/22 05:00 10/03/22 04:50 10/03/22 04:40 10/03/22 04:30 10/03/22 04:20 10/03/22 04:10 10/03/22 04:00 10/03/22 03:50 10/03/22 03:40 10/03/22 03:30 10/03/22 03:20 10/03/22 03:10 10/03/22 03:00 10/03/22 02:50 10/03/22 02:40 10/03/22 02:30 10/03/22 02:20 10/03/22 02:10 10/03/22 02:00 10/03/22 02:00 10/03/22 01:50 10/03/22 01:40 10/03/22 01:30 10/03/22 01:30 10/03/22 01:20 10/03/22 01:10 10/03/22 01:07 10/03/22 00:20 10/03/22 00:10 10/03/22 00:00 10/02/22 23:53 10/02/22 23:10 10/02/22 23:00 10/02/22 23:00 10/02/22 22:22 10/02/22 22:22 Room Air 10/02/22 22:22 10/02/22 20:51 Room Air 10/02/22 20:48 Room Air PG Care Time/CCT Total # of Minutes Spent Total Time Spent with Patient: Total time spent is greater than 50% in coordination of care (as documented) at patient's floor/unit and/or counseling patient: Coding Level of Care Code 25563 Inpt Consult Level 2 Diagnoses with 15 completed weeks gestation Z3A.15 COVID-19 U07.1
--- NOTE | 2022-10-03 11:18 | Electrocardiogram Report ---
Test Reason : Blood Pressure : / mmHG Vent. Rate : 125 BPM Atrial Rate : 125 BPM P-R Int : 126 ms QRS Dur : 084 ms QT Int : 300 ms P-R-T Axes : 068 018 057 degrees QTc Int : 433 ms Sinus tachycardia Otherwise normal ECG No previous ECGs available Confirmed by Jeffry Ayala ([id number]) on 10/03/2022 11:18:20 AM Referred By: REFERRED SELF Confirmed By:Jeffry Ayala
--- NOTE | 2022-10-03 12:13 | Cardiology Consultation ---
Date of Consultation October 03, 2022 Assessment & Plan (1) Elevated troponin: (2) COVID-19: (3) with 15 completed weeks gestation: (4) Tachycardia: Plan 32-year-old female presents with acute COVID infection, symptomatic head congestion possible mild infiltrate on CTA chest On treatment with Sudafed developed increased heart rate, tachycardia and chest discomfort. Troponins elevated on presentation No EKG changes of ischemia with normal LV systolic function and no evidence of cardiac involvement at least at this point Recommendations: Maintain telemetry EKG in a.m. Continue to trend troponin Treat COVID infection as indicated Cardiology will follow History of Present Illness Reason for Consultation: Chest pain, elevated heart rate, elevated troponin Requesting Physician: Dr. Kaiser Attending Physician: Don Kaiser MD History of Present Illness Patient is a 32-year-old female without prior cardiac history who was referred for evaluation after presenting with symptoms of acute COVID infection, elevated heart rate and chest pressure pain. Patient is at 15 weeks gestation of her second She denies prior history of cardiac disease arrhythmias dizziness syncope near syncope TIA or stroke. No history rheumatic fever scarlet fever heart murmur. Has had low-grade fever the past 1 to 2 days with sinus congestion and malaise. No loss of taste or smell Has had sick COVID contacts with son No bleeding difficulties Yesterday due to head congestion took Sudafed then began experiencing symptoms of racing heart rate and chest tightness. She presented to ER in sinus tachycardia COVID-positive on test Troponin elevated mildly with no acute ST segment changes on EKG CTA chest without pulmonary embolus done due to symptoms as above and elevated D-dimer Echo this morning reveals normal LV function without wall motion abnormality or valvular disease, no pericardial effusion Allergies Allergy/AdvReac Type Severity Reaction Status Date / Time Penicillins Allergy Unknown Verified 10/03/22 02:49 pseudoephedrine AdvReac Intermediate Tachycardia Verified 10/03/22 05:03 [From Sudafed] Home Medications Medication Instructions Recorded Confirmed Type prenat.vits,hector,jow-vrsj-zhycc 1 tab PO DAILY 08/10/22 10/03/22 History acetaminophen 500 mg tablet 1,000 mg PO Q6H PRN Pain 10/03/22 10/03/22 History (Tylenol Extra Strength) pseudoephedrine HCl 120 mg 120 mg PO Q12H PRN .. 10/03/22 10/03/22 History tablet,extended release (Sudafed 12 Hour) Patient History Medical History Hx of varicella Family History Father Anemia Cirrhosis Grandmother (Maternal) Brain cancer Grandmother (Paternal) Breast cancer Grandfather (Maternal) Heart disease Mother Hypertension Social History Smoking Status: Never smoker Hx Alcohol Use: No Hx Substance Use: No Preferred Language: Lithuanian Communication Ability: Effective Alterations Expert Required: No Beliefs That Will Affect Care: None marital status: marital status details: Abdullahi Hussein ([phone] Current Living Situation: Spouse Current Living Situation Comment: lives with spouse, son, cats-spouse changing litter current occupational status: employed 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 Feels Safe at Home: Yes Assistive Devices: Glasses Review of Systems Review of Systems: All systems reviewed & are unremarkable except as noted in HPI & below Physical Exam Constitutional: WD/WN, vitals as above Eyes: PERRL, conjunctivae normal, anicteric sclerae ENMT: external ear and nose normal, oropharynx normal Neck: trachea midline, no thyromegaly Respiratory: normal respiratory effort, lungs clear to auscultation Cardiovascular: Rate/Rhythm: regular rate and regular rhythm Heart Sounds: normal S1 and normal S2; no gallop and no murmur Palpation: normal PMI Vessels: normal carotid upstroke and radial pulses present; no JVD and no carotid bruit Extremities: no edema Gastrointestinal (Abdomen): Percussion/Palpation: abdomen soft; abdomen nontender Exam consistent stage of gestation Musculoskeletal: no cyanosis or clubbing, extremities motor strength 5/5 Skin: no rashes, warm and dry Neurologic: PERRL, EOMI, accommodation nl, no face palsy, no dysarthria Psychiatric: A+Ox3, euthymic affect Results & Data ([place]) Vital Signs (Past 12 Hours) Vital Signs Temp Pulse Pulse Pulse Resp BP BP 10/03/22 11:45 36.6 C 99 H 16 102/69 10/03/22 11:14 10/03/22 10:44 106 H 19 106/68 10/03/22 09:27 10/03/22 08:58 107 H 18 109/71 10/03/22 08:58 10/03/22 05:40 108 H 16 10/03/22 05:30 119 H 14 10/03/22 05:20 109 H 15 10/03/22 05:10 109 H 20 10/03/22 05:00 110 H 19 10/03/22 04:50 116 H 16 10/03/22 04:40 110 H 17 10/03/22 04:30 107 H 14 10/03/22 04:20 109 H 18 10/03/22 04:10 110 H 14 10/03/22 04:00 114 H 23 10/03/22 03:50 119 H 18 10/03/22 03:40 112 H 15 10/03/22 03:30 120 H 19 10/03/22 03:20 114 H 14 10/03/22 03:10 121 H 15 10/03/22 03:00 119 H 15 10/03/22 02:50 124 H 22 10/03/22 02:40 121 H 14 10/03/22 02:30 10/03/22 02:20 112 H 14 10/03/22 02:10 120 H 16 10/03/22 02:00 117 H 20 10/03/22 02:00 120/74 10/03/22 01:50 119 H 15 10/03/22 01:40 121 H 16 10/03/22 01:30 120 H 20 10/03/22 01:30 122/74 10/03/22 01:20 122 H 20 10/03/22 01:10 121 H 17 10/03/22 01:07 125 H 10/03/22 00:20 Pulse Ox O2 Del Method O2 Del Method 10/03/22 11:45 100 Room Air 10/03/22 11:14 Room Air 10/03/22 10:44 99 Room Air 10/03/22 09:27 Room Air 10/03/22 08:58 98 Room Air 10/03/22 08:58 Room Air 10/03/22 05:40 10/03/22 05:30 10/03/22 05:20 10/03/22 05:10 10/03/22 05:00 10/03/22 04:50 10/03/22 04:40 10/03/22 04:30 10/03/22 04:20 10/03/22 04:10 10/03/22 04:00 10/03/22 03:50 98 10/03/22 03:40 97 10/03/22 03:30 98 10/03/22 03:20 98 10/03/22 03:10 100 10/03/22 03:00 100 10/03/22 02:50 99 10/03/22 02:40 99 10/03/22 02:30 92 10/03/22 02:20 97 10/03/22 02:10 98 10/03/22 02:00 97 10/03/22 02:00 10/03/22 01:50 98 10/03/22 01:40 98 10/03/22 01:30 100 10/03/22 01:30 10/03/22 01:20 99 10/03/22 01:10 100 10/03/22 01:07 98 10/03/22 00:20 99 Laboratory Results Laboratory Results - last 24 hr 10/02/22 10/02/22 10/02/22 21:00 21:00 21:00 WBC 10.04 RBC 3.73 L Hgb 11.9 L Hct 33.1 L MCV 88.7 MCH 31.9 MCHC 36.0 RDW Std Deviation 42.5 RDW Coeff of Marie 13.2 Plt Count 249 MPV 9.4 Immature Gran % (Auto) 0.6 Neut % (Auto) 84.3 Lymph % (Auto) 6.4 [place] % (Auto) 8.3 Eos % (Auto) 0.2 Baso % (Auto) 0.2 Neut # (Auto) 8.47 H Lymph # (Auto) 0.64 L [place] # (Auto) 0.83 H Eos # (Auto) 0.02 Baso # (Auto) 0.02 Immature Gran # (Auto) 0.06 H PT 10.6 INR 1.0 APTT 30.1 PTT Ratio 1.1 D-Dimer Sodium 132 L Potassium 3.2 L Chloride 101 Carbon Dioxide 22 Anion Gap 9 BUN 5 L Creatinine 0.54 L Est Cr Clr Drug Dosing 126.3 Est GFR ( Amer) 146.8 Est GFR (Non-Af Amer) 126.6 BUN/Creatinine Ratio 9.3 L Glucose 109 H Calcium 8.9 Magnesium Total Bilirubin 0.4 AST 13 ALT 10 Alkaline Phosphatase 39 Troponin I High Sens 35.9 H Total Protein 7.3 Albumin 4.0 Globulin 3.3 Albumin/Globulin Ratio 1.2 TSH Urine Color Urine Appearance Urine pH Ur Specific [place] Urine Protein Urine Glucose (UA) Urine Ketones Urine Blood Urine Nitrite Urine Bilirubin Urine Urobilinogen Ur Leukocyte Esterase Urine WBC (Auto) Urine RBC (Auto) U Hyaline Cast (Auto) U Epithel Cells (Auto) Urine Bacteria (Auto) SARS-CoV-2 (PCR) Influenza Type A (PCR) Influenza Type B (PCR) RSV (RT-PCR) 10/02/22 10/02/22 10/02/22 21:00 22:30 22:41 WBC RBC Hgb Hct MCV MCH MCHC RDW Std Deviation RDW Coeff of Marie Plt Count MPV Immature Gran % (Auto) Neut % (Auto) Lymph % (Auto) [place] % (Auto) Eos % (Auto) Baso % (Auto) Neut # (Auto) Lymph # (Auto) [place] # (Auto) Eos # (Auto) Baso # (Auto) Immature Gran # (Auto) PT INR APTT PTT Ratio D-Dimer 690 H* Sodium Potassium Chloride Carbon Dioxide Anion Gap BUN Creatinine Est Cr Clr Drug Dosing Est GFR ( Amer) Est GFR (Non-Af Amer) BUN/Creatinine Ratio Glucose Calcium Magnesium Total Bilirubin AST ALT Alkaline Phosphatase Troponin I High Sens Total Protein Albumin Globulin Albumin/Globulin Ratio TSH 1.164 Urine Color Urine Appearance Urine pH Ur Specific [place] Urine Protein Urine Glucose (UA) Urine Ketones Urine Blood Urine Nitrite Urine Bilirubin Urine Urobilinogen Ur Leukocyte Esterase Urine WBC (Auto) Urine RBC (Auto) U Hyaline Cast (Auto) U Epithel Cells (Auto) Urine Bacteria (Auto) SARS-CoV-2 (PCR) POSITIVE A* Influenza Type A (PCR) Negative Influenza Type B (PCR) Negative RSV (RT-PCR) Negative 10/02/22 10/02/22 10/03/22 22:41 22:41 05:21 WBC 9.26 RBC 3.44 L Hgb 10.9 L Hct 31.3 L MCV 91.0 MCH 31.7 MCHC 34.8 RDW Std Deviation 44.2 RDW Coeff of Marie 13.4 Plt Count 229 MPV 9.2 L Immature Gran % (Auto) 0.6 Neut % (Auto) 80.6 Lymph % (Auto) 10.6 [place] % (Auto) 7.8 Eos % (Auto) 0.1 Baso % (Auto) 0.3 Neut # (Auto) 7.46 H Lymph # (Auto) 0.98 L [place] # (Auto) 0.72 Eos # (Auto) 0.01 Baso # (Auto) 0.03 Immature Gran # (Auto) 0.06 H PT INR APTT PTT Ratio D-Dimer Sodium Potassium Chloride Carbon Dioxide Anion Gap BUN Creatinine Est Cr Clr Drug Dosing Est GFR ( Amer) Est GFR (Non-Af Amer) BUN/Creatinine Ratio Glucose Calcium Magnesium 1.5 L Total Bilirubin AST ALT Alkaline Phosphatase Troponin I High Sens 70.4 H* D Total Protein Albumin Globulin Albumin/Globulin Ratio TSH Urine Color Urine Appearance Urine pH Ur Specific [place] Urine Protein Urine Glucose (UA) Urine Ketones Urine Blood Urine Nitrite Urine Bilirubin Urine Urobilinogen Ur Leukocyte Esterase Urine WBC (Auto) Urine RBC (Auto) U Hyaline Cast (Auto) U Epithel Cells (Auto) Urine Bacteria (Auto) SARS-CoV-2 (PCR) Influenza Type A (PCR) Influenza Type B (PCR) RSV (RT-PCR) 10/03/22 10/03/22 10/03/22 05:21 05:21 Unknown WBC RBC Hgb Hct MCV MCH MCHC RDW Std Deviation RDW Coeff of Marie Plt Count MPV Immature Gran % (Auto) Neut % (Auto) Lymph % (Auto) [place] % (Auto) Eos % (Auto) Baso % (Auto) Neut # (Auto) Lymph # (Auto) [place] # (Auto) Eos # (Auto) Baso # (Auto) Immature Gran # (Auto) PT INR APTT PTT Ratio D-Dimer Sodium 136 Potassium 5.0 D Chloride 108 H Carbon Dioxide 22 Anion Gap 6 BUN 4 L Creatinine 0.49 L Est Cr Clr Drug Dosing 139.2 Est GFR ( Amer) > 150.0 Est GFR (Non-Af Amer) 130.7 BUN/Creatinine Ratio 8.2 L Glucose 116 H Calcium 8.7 Magnesium 2.2 Total Bilirubin AST ALT Alkaline Phosphatase Troponin I High Sens 132.9 H* D Total Protein Albumin Globulin Albumin/Globulin Ratio TSH Urine Color Yellow Urine Appearance Clear Urine pH 6.5 Ur Specific [place] 1.004 Urine Protein Negative Urine Glucose (UA) Negative Urine Ketones 1+ H Urine Blood Negative Urine Nitrite Negative Urine Bilirubin Negative Urine Urobilinogen Negative Ur Leukocyte Esterase Trace H Urine WBC (Auto) 1-5 Urine RBC (Auto) 0-4 U Hyaline Cast (Auto) 0 U Epithel Cells (Auto) 20-30 H Urine Bacteria (Auto) Negative SARS-CoV-2 (PCR) Influenza Type A (PCR) Influenza Type B (PCR) RSV (RT-PCR)
[2022-10-03] MEDS: PRENATAL VITAMIN 1 TAB PO SCH (13:04)
[2022-10-03] MEDS ORDERED: LABETALOL HCL 100 MG TAB PO SCH (13:45)
--- NOTE | 2022-10-03 15:12 | Communication Note ---
Date of Service: October 03, 2022 Patient seen and examined in the ED and telemetry unit. Patient reports that her chest pain has resolved. She denies any shortness of breath or palpitation. Telemetry shows sinus tachycardia. On examination She is alert oriented x3; not in distress Chestbilateral basal breath sound CVSS1-S2, no murmur. 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 Afebrile, normotensive and saturating well on room air. EKG showed sinus tachycardia; no ST or T wave changes. High sensitive troponin elevated to 1100. Echo shows normal LV systolic function. CT chest angiono PE Plan: Discussed with cardiology regarding uptrending troponin. Recommended to initiate beta-awa ( labetalol). Continue Telemetry monitoring. Trend troponin. CRP and BNP ordered.
[2022-10-03] MEDS ORDERED: ALUMINUM/MAGNESIUM SUSP 18 ML, LIDOCAINE VISCOUS 2% SOLN 6 ML, BARCODE IDENTIFIER 1 EACH PO ONE (15:39)
[2022-10-03] MEDS: LACTATED RINGER'S 1,000 ML IV SCH (16:32)
[2022-10-03] MEDS: FAMOTIDINE 20 MG TAB PO SCH (16:33)
[2022-10-03 16:47] LABS: C Reactive Protein 9.71 mg/dl (0-0.5)
[2022-10-03 17:09] LABS: Troponin I High Sensitivity 4582.4 pg/ml (0-14)
[2022-10-03] MEDS: LABETALOL HCL 100 MG TAB PO SCH (20:32)
[2022-10-04] MEDS: LACTATED RINGER'S 1,000 ML IV SCH (06:01)
[2022-10-04 08:01] LABS: Basophils # (auto) 0.03 K/uL (0-0.2); Basophils % (auto) 0.4 %; Eosinophils # (auto) 0.12 K/uL (0-0.50); Eosinophils % (auto) 1.6 %; Hematocrit (blood only) 30.7 % (34.1-44.9); Hemoglobin 10.4 g/dl (12.0-16.0); Immature Granulocytes # (auto) 0.06 K/uL (0.00-0.02); Immature Granulocytes % (auto) 0.8 %; Lymphocytes # (auto) 1.14 K/uL (1.2-3.4); Lymphocytes % (auto) 15.7 %; Mean Corpuscular Hemoglobin 31.5 pg (25.0-34.0); Mean Corpuscular Hgb Conc 33.9 g/dL (32.0-36.0); Mean Platelet Volume 9.4 fL (9.4-12.3); Monocytes # (auto) 0.53 K/uL (0.24-0.82); Monocytes % (auto) 7.3 %; Neutrophils % (auto) 74.2 %; Platelet Count 228 K/uL (130-400); RDW Coefficient of Variation 13.8 % (11.5-14.5); RDW Standard Deviation 47.2 fL (36.4-46.3); White Blood Count 7.28 K/ul (4.8-10.8)
[2022-10-04] MEDS: PRENATAL VITAMIN 1 TAB PO SCH (08:05)
[2022-10-04] MEDS: FAMOTIDINE 20 MG TAB PO SCH (08:05)
[2022-10-04] MEDS: LABETALOL HCL 100 MG TAB PO SCH ×2 (08:05→20:13)
[2022-10-04 09:05] LABS: Anion Gap 4 (3-11); Blood Urea Nitrogen 6 mg/dl (6-23); Carbon Dioxide 26 mmol/L (21-32); Chloride 105 mmol/L (98-107); Creatinine Clr Calc Pharmacy 159.5 ml/min; Est GFR (African American) > 150.0 ml/min; Est GFR (Non-African American) 136.5 ml/min; Glucose 89 mg/dl (70-99(Fasting)); Magnesium 1.7 mg/dl (1.7-2.4); Potassium 3.3 mmol/L (3.5-5.1); Sodium 135 mmol/L (136-145); Troponin I High Sensitivity 3057.6 pg/ml (0-14)
--- NOTE | 2022-10-04 11:56 | Cardiology Progress Note ---
Date of Service October 04, 2022 Assessment & Plan (1) Elevated troponin: (2) COVID-19: (3) with 15 completed weeks gestation: (4) Tachycardia: Plan 32-year-old female presents with acute COVID infection, symptomatic head congestion possible mild infiltrate on CTA chest On treatment with Sudafed developed increased heart rate, tachycardia and chest discomfort. Troponins elevated on presentation No EKG changes of ischemia with normal LV systolic function and no evidence of cardiac involvement at least at this point Recommendations: Maintain telemetry EKG in a.m. Continue to trend troponin Treat COVID infection as indicated 10/04/2022 1. Elevated high-sensitivity troponin with peak greater than 4000 in the setting of acute COVID infection consistent with likely viral myocarditis. No EKG abnormalities other than low voltage. Repeat echocardiogram pending from this morning Will continue beta-awa with labetalol 100 mg twice per day. ANITA inhibitor contraindicated Maintain telemetry planned observation 24 to 48 hours depending on clinical course Cardiac MRI currently contraindicated We will supplement potassium Addendum: Echocardiogram demonstrates preserved LV function EF 60-65% without wall motion abnormality. Continue current therapies. Would maintain telemetry at least an additional 24 hours Admission and Anticipated Discharge Date Admission Date: October 03, 2022 Subjective Patient was seen and examined, chart, medications, telemetry reviewed. Only complains of minor sinus congestion. Heart rates trending lower. No signs or symptoms of fluid retention no shortness of breath. No chest pains. No current fevers or chills Slept well last night. No orthopnea or peripheral edema Review of Systems Review of Systems: All systems reviewed & are unremarkable except as noted in Subjective Physical Exam Constitutional: WD/WN, vitals as above Eyes: PERRL, conjunctivae normal, anicteric sclerae ENMT: external ear and nose normal, oropharynx normal Neck: trachea midline, no thyromegaly Respiratory: normal respiratory effort, lungs clear to auscultation Cardiovascular: Rate/Rhythm: regular rate and regular rhythm Heart Sounds: normal S1 and normal S2; no gallop and no murmur Palpation: normal PMI Vessels: normal carotid upstroke and radial pulses present; no JVD and no carotid bruit Extremities: no edema Gastrointestinal (Abdomen): Percussion/Palpation: abdomen soft; abdomen nontender Musculoskeletal: no cyanosis or clubbing, extremities motor strength 5/5 Skin: no rashes, warm and dry Neurologic: PERRL, EOMI, accommodation nl, no face palsy, no dysarthria Psychiatric: A+Ox3, euthymic affect Results & Data ([facility]) Vital Signs (Past 12 Hours) Vital Signs Temp Pulse Pulse Resp BP Pulse Ox O2 Del Method 10/04/22 07:30 73 10/04/22 07:36 36.7 C 90 16 106/71 98 10/04/22 03:26 36.7 C 92 H 103/48 L 98 Room Air Laboratory Results Laboratory Results - last 24 hr 10/03/22 10/03/22 10/03/22 12:19 15:48 15:48 WBC RBC Hgb Hct MCV MCH MCHC RDW Std Deviation RDW Coeff of Marie Plt Count MPV Immature Gran % (Auto) Neut % (Auto) Lymph % (Auto) [place] % (Auto) Eos % (Auto) Baso % (Auto) Neut # (Auto) Lymph # (Auto) [place] # (Auto) Eos # (Auto) Baso # (Auto) Immature Gran # (Auto) Sodium Potassium Chloride Carbon Dioxide Anion Gap BUN Creatinine Est Cr Clr Drug Dosing Est GFR ( Amer) Est GFR (Non-Af Amer) BUN/Creatinine Ratio Glucose Calcium Magnesium Troponin I High Sens 1148.8 H* D 4582.4 H* D C-Reactive Protein 9.71 H B-Natriuretic Peptide 54 10/03/22 10/04/22 10/04/22 21:44 07:15 07:15 WBC 7.28 RBC 3.30 L Hgb 10.4 L Hct 30.7 L MCV 93.0 MCH 31.5 MCHC 33.9 RDW Std Deviation 47.2 H RDW Coeff of Marie 13.8 Plt Count 228 MPV 9.4 Immature Gran % (Auto) 0.8 Neut % (Auto) 74.2 Lymph % (Auto) 15.7 [place] % (Auto) 7.3 Eos % (Auto) 1.6 Baso % (Auto) 0.4 Neut # (Auto) 5.40 Lymph # (Auto) 1.14 L [place] # (Auto) 0.53 Eos # (Auto) 0.12 Baso # (Auto) 0.03 Immature Gran # (Auto) 0.06 H Sodium 135 L Potassium 3.3 L D Chloride 105 Carbon Dioxide 26 Anion Gap 4 BUN 6 Creatinine 0.43 L Est Cr Clr Drug Dosing 159.5 Est GFR ( Amer) > 150.0 Est GFR (Non-Af Amer) 136.5 BUN/Creatinine Ratio 14.0 Glucose 89 Calcium 8.0 L Magnesium 1.7 Troponin I High Sens 4261.2 H* 3057.6 H* C-Reactive Protein B-Natriuretic Peptide Diagnostic Findings EKG sinus rhythm with low voltage no ST segment abnormalities
[2022-10-04] MEDS ORDERED: POTASSIUM CHLORIDE CRTAB 20 MEQ TABCR PO ONE (12:01)
--- NOTE | 2022-10-04 16:49 | Electrocardiogram Report ---
Test Reason : Blood Pressure : / mmHG Vent. Rate : 095 BPM Atrial Rate : 095 BPM P-R Int : 116 ms QRS Dur : 080 ms QT Int : 358 ms P-R-T Axes : 061 036 022 degrees QTc Int : 449 ms Normal sinus rhythm Low voltage QRS Nonspecific T wave abnormality Abnormal ECG When compared with ECG of 02-OCT-2022 20:53, Non-specific change in ST segment in Lateral leads Confirmed by Jeffry Ayala ([id number]) on 10/04/2022 4:48:46 PM Referred By: REFERRED SELF Confirmed By:Jeffry Ayala
--- NOTE | 2022-10-04 17:07 | Electrocardiogram Report ---
Test Reason : Blood Pressure : / mmHG Vent. Rate : 071 BPM Atrial Rate : 071 BPM P-R Int : 112 ms QRS Dur : 080 ms QT Int : 384 ms P-R-T Axes : 062 014 019 degrees QTc Int : 417 ms Sinus rhythm with marked sinus arrhythmia Low voltage QRS Borderline ECG When compared with ECG of 03-OCT-2022 15:30, (unconfirmed) No significant change was found Confirmed by Jeffry Ayala ([id number]) on 10/04/2022 5:07:09 PM Referred By: REFERRED SELF Confirmed By:Jeffry Ayala
--- NOTE | 2022-10-04 21:50 | Hospitalist Progress Note ---
Date of Service October 04, 2022 Assessment & Plan (1) COVID-19: (2) Elevated troponin: (3) Chest pain: (4) Tachycardia: Plan: 32-year-old female with 15 weeks presented to with acute COVID infection associated with congestion possible mild infiltrate on CTA chest Use [id number] Sudafed that developed increased heart rate, tachycardia and chest discomfort. CTA chest on admission showed no evidence of PE Troponins peaked to 4582, now trending down No EKG changes of ischemia with normal LV systolic function and no evidence of cardiac involvement at least at this point Echo showed normal wall motion with preserved LV function with ejection fraction 60 to 65% Cardiology on board continue labetalol 100 mg twice daily Continue monitor on telemetry Continue to trend troponin Clinically improved significantly COVID-19 Saturating well on room air Does not meet the criteria for remdesivir and dexamethasone since there is no hypoxic Continue monitor closely 15 weeks Follow-up with [facility] outpatient DVT prophylaxis SCD and encourage patient to ambulate Status full code Admission and Anticipated Discharge Date Admission Date: October 03, 2022 Subjective Patient was seen and examined for follow-up of covid 19 and chest discomfort Lying in bed with no acute distress watching TV She says she feels fine today She said she is not coughing and congestion improved significantly Denies any chest pain, palpitation, dizziness, and shortness of breath. Review of Systems Review of Systems: All systems reviewed & are unremarkable except as noted in Subjective Physical Exam 2 Physical Exam: General- No acute distress Head- atraumatic Eyes- PERRL, EOMI, ENT- oropharynx clear Neck- supple, no JVD Lungs- clear to auscultation Heart- regular rhythm; no murmur Abdomen- normal bowel sounds, soft, nontender, + Extremities- no calf tenderness Neuro- alert, oriented x 3; PERRL, EOMI; no facial palsy; no dysarthria Skin- warm & dry Results & Data Results & Data ([facility]) Vital Signs (Past 12 Hours) Vital Signs Temp Pulse Pulse Resp BP Pulse Ox O2 Del Method 10/04/22 19:21 36.4 C L 76 16 113/74 99 Room Air 10/04/22 18:23 93 H 10/04/22 16:44 36.7 C 95 H 16 109/68 98 Room Air 10/04/22 12:07 36.6 C 80 14 95/64 L 98 Room Air (1) Chest pain Chest pain type: unspecified Qualified Code(s): R07.9 - Chest pain, unspecified
[2022-10-05] MEDS: FAMOTIDINE 20 MG TAB PO SCH (08:14)
[2022-10-05] MEDS: LABETALOL HCL 100 MG TAB PO SCH (08:14)
[2022-10-05] MEDS: PRENATAL VITAMIN 1 TAB PO SCH (08:14)
[2022-10-05 08:22] LABS: Troponin I High Sensitivity 1941.9 pg/ml (0-14)
[2022-10-05 08:29] LABS: Anion Gap 7 (3-11); Blood Urea Nitrogen 9 mg/dl (6-23); Calcium 8.4 mg/dl (8.5-10.1); Carbon Dioxide 25 mmol/L (21-32); Chloride 105 mmol/L (98-107); Creatinine Clr Calc Pharmacy 136.4 ml/min; Est GFR (African American) > 150.0 ml/min; Est GFR (Non-African American) 129.9 ml/min; Glucose 87 mg/dl (70-99(Fasting)); Sodium 137 mmol/L (136-145)
--- NOTE | 2022-10-05 11:00 | Cardiology Progress Note ---
Date of Service October 05, 2022 Assessment & Plan (1) Elevated troponin: (2) COVID-19: (3) with 15 completed weeks gestation: (4) Tachycardia: Plan 32-year-old female presents with acute COVID infection, symptomatic head congestion possible mild infiltrate on CTA chest On treatment with Sudafed developed increased heart rate, tachycardia and chest discomfort. Troponins elevated on presentation No EKG changes of ischemia with normal LV systolic function and no evidence of cardiac involvement at least at this point Recommendations: Maintain telemetry EKG in a.m. Continue to trend troponin Treat COVID infection as indicated 10/04/2022 1. Elevated high-sensitivity troponin with peak greater than 4000 in the setting of acute COVID infection consistent with likely viral myocarditis. No EKG abnormalities other than low voltage. Repeat echocardiogram pending from this morning Will continue beta-awa with labetalol 100 mg twice per day. ANITA inhibitor contraindicated Maintain telemetry planned observation 24 to 48 hours depending on clinical course Cardiac MRI currently contraindicated We will supplement potassium Addendum: Echocardiogram demonstrates preserved LV function EF 60-65% without wall motion abnormality. Continue current therapies. Would maintain telemetry at least an additional 24 hours 10/05/2022 1. Acute myocarditis, COVID with preserved LV systolic function and no acute EKG changes. Asymptomatic without signs of heart failure or arrhythmia Patient anxious to be discharged Will discharge on labetalol 100 mg twice per day, ANITA inhibitor contraindicated No strenuous activity. Daily weights patient report any acute weight gain, chest pains, shortness of breath 14-day AT Zio patch to be placed today on the way home [facility] cardiac Cardiology appointment 1 week 10/13/2022 Repeat echocardiogram at that time Admission and Anticipated Discharge Date Admission Date: October 05, 2022 Subjective Patient seen and examined, chart, medications, telemetry reviewed Overall feels well minimal sinus congestion No chest pain shortness of breath tachypalpitations. Heart rates trending towards better control. No dizziness or lightheadedness. No edema. No arrhythmias on telemetry EKG unchanged Review of Systems Review of Systems: All systems reviewed & are unremarkable except as noted in Subjective Physical Exam Constitutional: WD/WN, vitals as above Eyes: PERRL, conjunctivae normal, anicteric sclerae ENMT: external ear and nose normal, oropharynx normal Neck: trachea midline, no thyromegaly Respiratory: normal respiratory effort, lungs clear to auscultation Cardiovascular: Rate/Rhythm: regular rate and regular rhythm Heart Sounds: normal S1 and normal S2; no gallop and no murmur Palpation: normal PMI Vessels: normal carotid upstroke and radial pulses present; no JVD and no carotid bruit Extremities: no edema Gastrointestinal (Abdomen): Percussion/Palpation: abdomen soft; abdomen nontender Musculoskeletal: no cyanosis or clubbing, extremities motor strength 5/5 Skin: no rashes, warm and dry Neurologic: PERRL, EOMI, accommodation nl, no face palsy, no dysarthria Psychiatric: A+Ox3, euthymic affect Results & Data ([facility]) Vital Signs (Past 12 Hours) Vital Signs Temp Pulse Pulse Resp BP Pulse Ox O2 Del Method 10/05/22 09:28 73 10/05/22 07:38 36.8 C 80 14 105/64 99 Room Air 10/05/22 03:59 36.9 C 70 16 92/56 L 98 Room Air 10/05/22 03:41 81 10/04/22 23:11 36.5 C 96 H 16 108/67 97 Room Air Laboratory Results Laboratory Results - last 24 hr 10/04/22 10/05/22 16:40 06:51 Sodium 137 Potassium 4.0 D Chloride 105 Carbon Dioxide 25 Anion Gap 7 BUN 9 Creatinine 0.50 L Est Cr Clr Drug Dosing 136.4 Est GFR ( Amer) > 150.0 Est GFR (Non-Af Amer) 129.9 BUN/Creatinine Ratio 18.0 Glucose 87 Calcium 8.4 L Troponin I High Sens 1310.6 H* D 1941.9 H* D
--- NOTE | 2022-10-05 16:44 | Electrocardiogram Report ---
Test Reason : Blood Pressure : / mmHG Vent. Rate : 067 BPM Atrial Rate : 067 BPM P-R Int : 098 ms QRS Dur : 082 ms QT Int : 396 ms P-R-T Axes : 029 055 055 degrees QTc Int : 418 ms Sinus rhythm with sinus arrhythmia with short FL Poor R wave progression, consider anterior PA vs. lead placement vs. LVH Abnormal ECG When compared with ECG of 04-OCT-2022 06:13, No significant change was found Confirmed by Jeffry Ayala ([id number]) on 10/05/2022 4:44:43 PM Referred By: REFERRED SELF Confirmed By:Jeffry Ayala
--- NOTE | 2022-10-18 11:26 | Discharge Summary ---
Date of Service October 05, 2022 Admission HPI Per Admitting Provider History obtained from patient, family, and records. No significant medical history. Patient currently at 16 weeks AOG. Last confinement under service July 2020 for term status post vaginal delivery. 2 days history of cold symptoms, dry cough and congestion. Poor appetite Sick family contacts. Patient completed COVID-19 vaccination. Yesterday morning, patient took 1 dose of Sudafed for congestion. Patient later noted heartburn like chest pain associated with shortness of breath and palpitations. Nausea, emesis at the emergency room. 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 Admission Exam Per Admitting Provider GENERAL: Comfortable, pleasant, no respiratory distress SKIN: Pallor, warm HEENT: Bespectacled, pale palpebral conjunctivae, no ptosis, dry buccal mucosa NECK : Supple, no tenderness CHEST : CTA, no tenderness HEART : Tachycardic, no obvious murmurs ABDOMEN: Some distention, nontender EXTREMITIES : No LE swelling/tenderness, no other conspicuous deformities noted NEUROLOGIC : Coherent, no facial asymmetry, no other gross focality Principal Diagnosis (1) COVID-19: (2) Elevated troponin: (3) Chest pain: (4) Tachycardia: (5) (6) Acute myocarditis Discharge Exam General- No acute distress Head- atraumatic Eyes- PERRL, EOMI, ENT- oropharynx clear Neck- supple, no JVD Lungs- clear to auscultation Heart- regular rhythm; no murmur Abdomen- normal bowel sounds, soft, nontender, + Extremities- no calf tenderness Neuro- alert, oriented x 3; PERRL, EOMI; no facial palsy; no dysarthria Skin- warm & dry Discharge Data Allergies Allergy/AdvReac Type Severity Reaction Status Date / Time Penicillins Allergy Unknown Verified 10/13/22 15:15 pseudoephedrine AdvReac Intermediate Tachycardia Verified 10/13/22 15:15 [From Sudafed] Consultations 10/03/22 02:34 ED Decision to Admit Stat 10/03/22 03:11 Consult Obstetrics Routine 10/03/22 07:27 Consult Cardiology Routine Ordered Studies 10/02/22 22:16 US venous doppler LE BI Stat 10/02/22 23:54 CT angio chest PE protocol Stat Laboratory Results WBC 7.28 K/ul (4.8-10.8) 10/04/22 07:15 RBC 3.30 M/uL (3.93-5.22) L 10/04/22 07:15 Hgb 10.4 g/dl (12.0-16.0) L 10/04/22 07:15 Hct 30.7 % (34.1-44.9) L 10/04/22 07:15 MCV 93.0 fL (80.0-100.0) 10/04/22 07:15 MCH 31.5 pg (25.0-34.0) 10/04/22 07:15 MCHC 33.9 g/dL (32.0-36.0) 10/04/22 07:15 RDW Std Deviation 47.2 fL (36.4-46.3) H 10/04/22 07:15 RDW Coeff of Marie 13.8 % (11.5-14.5) 10/04/22 07:15 Plt Count 228 K/uL (130-400) 10/04/22 07:15 MPV 9.4 fL (9.4-12.3) 10/04/22 07:15 Immature Gran % (Auto) 0.8 % 10/04/22 07:15 Neut % (Auto) 74.2 % 10/04/22 07:15 Lymph % (Auto) 15.7 % 10/04/22 07:15 [place] % (Auto) 7.3 % 10/04/22 07:15 Eos % (Auto) 1.6 % 10/04/22 07:15 Baso % (Auto) 0.4 % 10/04/22 07:15 Neut # (Auto) 5.40 K/uL (1.4-6.5) 10/04/22 07:15 Lymph # (Auto) 1.14 K/uL (1.2-3.4) L 10/04/22 07:15 [place] # (Auto) 0.53 K/uL (0.24-0.82) 10/04/22 07:15 Eos # (Auto) 0.12 K/uL (0-0.50) 10/04/22 07:15 Baso # (Auto) 0.03 K/uL (0-0.2) 10/04/22 07:15 Immature Gran # (Auto) 0.06 K/uL (0.00-0.02) H 10/04/22 07:15 PT 10.6 Seconds (9.0-12.0) 10/02/22 21:00 INR 1.0 (0.9-1.1) 10/02/22 21:00 APTT 30.1 Seconds (21.0-31.0) 10/02/22 21:00 PTT Ratio 1.1 10/02/22 21:00 D-Dimer 690 ug/L FEU (0-500) H* 10/02/22 22:41 Sodium 137 mmol/L (136-145) 10/05/22 06:51 Potassium 4.0 mmol/L (3.5-5.1) D 10/05/22 06:51 Chloride 105 mmol/L (98-107) 10/05/22 06:51 Carbon Dioxide 25 mmol/L (21-32) 10/05/22 06:51 Anion Gap 7 (3-11) 10/05/22 06:51 BUN 9 mg/dl (6-23) 10/05/22 06:51 Creatinine 0.50 mg/dl (0.6-1.2) L 10/05/22 06:51 Est Cr Clr Drug Dosing 136.4 ml/min 10/05/22 06:51 Est GFR ( Amer) > 150.0 ml/min 10/05/22 06:51 Est GFR (Non-Af Amer) 129.9 ml/min 10/05/22 06:51 BUN/Creatinine Ratio 18.0 (10-20) 10/05/22 06:51 Glucose 87 mg/dl (70-99(Fasting)) 10/05/22 06:51 Calcium 8.4 mg/dl (8.5-10.1) L 10/05/22 06:51 Magnesium 1.7 mg/dl (1.7-2.4) 10/04/22 07:15 Total Bilirubin 0.4 mg/dl (0.2-1.0) 10/02/22 21:00 AST 13 U/L (13-39) 10/02/22 21:00 ALT 10 U/L (7-52) 10/02/22 21:00 Alkaline Phosphatase 39 U/L (34-104) 10/02/22 21:00 Troponin I High Sens 1941.9 pg/ml (0-14) H* D 10/05/22 06:51 C-Reactive Protein 9.71 mg/dl (0-0.5) H 10/03/22 15:48 B-Natriuretic Peptide 54 pg/ml (0-100) 10/03/22 15:48 Total Protein 7.3 gm/dl (6.0-8.3) 10/02/22 21:00 Albumin 4.0 gm/dl (3.4-5.0) 10/02/22 21:00 Globulin 3.3 gm/dl (2.5-4.0) 10/02/22 21:00 Albumin/Globulin Ratio 1.2 (0.9-2) 10/02/22 21:00 TSH 1.164 uIu/ml (0.300-4.500) 10/02/22 21:00 Urine Color Yellow 10/03/22 Unknown Urine Appearance Clear (Clear) 10/03/22 Unknown Urine pH 6.5 (4.5-7.5) 10/03/22 Unknown Ur Specific [place] 1.004 (1.000-1.030) 10/03/22 Unknown Urine Protein Negative (Negative) 10/03/22 Unknown Urine Glucose (UA) Negative (Negative) 10/03/22 Unknown Urine Ketones 1+ (Negative) H 10/03/22 Unknown Urine Blood Negative (Negative) 10/03/22 Unknown Urine Nitrite Negative (Negative) 10/03/22 Unknown Urine Bilirubin Negative (Negative) 10/03/22 Unknown Urine Urobilinogen Negative (Negative) 10/03/22 Unknown Ur Leukocyte Esterase Trace (Negative) H 10/03/22 Unknown Urine WBC (Auto) 1-5 /hpf (0-5) 10/03/22 Unknown Urine RBC (Auto) 0-4 /hpf (0-4) 10/03/22 Unknown U Hyaline Cast (Auto) 0 /lpf (0-5) 10/03/22 Unknown U Epithel Cells (Auto) 20-30 /lpf (0-5) H 10/03/22 Unknown Urine Bacteria (Auto) Negative (Negative) 10/03/22 Unknown SARS-CoV-2 (PCR) POSITIVE (Negative) A* 10/02/22 22:30 Influenza Type A (PCR) Negative (Neg) 10/02/22 22:30 Influenza Type B (PCR) Negative (Neg) 10/02/22 22:30 RSV (RT-PCR) Negative (Neg) 10/02/22 22:30 Impressions Venous Doppler Study 10/02/22 22:16 ULTRASOUND BILATERAL LOWER EXTREMITY VENOUS CLINICAL HISTORY: Atypical chest pain. Dyspnea. . Clinical concern for deep venous thrombosis. COMPARISON STUDY: No priors. TECHNIQUE: Real-time, grayscale, and color Doppler sonography of the deep veins of the right and left lower extremity was performed from the inguinal crease to the calf. Compression and augmentation were utilized. FINDINGS: There is no sonographic evidence of deep venous thrombosis identified in the right or left lower extremity. The common femoral, superficial femoral, and popliteal veins are patent and normally compressible bilaterally. The greater saphenous vein and the profunda femoris vein at the junction with the common femoral vein are clear in both legs. The visualized calf veins are patent bilaterally. IMPRESSION: There is no sonographic evidence of deep venous thrombosis identified in the right or left lower extremity. ACT 112: Negative or not required by law. Electronically signed by: Everette Peñaloza M.D. 10/02/2022 11:52 PM Chest CTA 10/02/22 23:54 CHEST CTA for PULMONARY ARTERIES CT DOSE: 368.51 mGycm HISTORY: Elev D-dimer/troponin, chest pain/SOB, 15 wk preg TECHNIQUE: Multiaxial CT images of the chest were performed following the intravenous administration of contrast to evaluate the pulmonary arteries. Maximal intensity projection images were also obtained. A dose lowering technique was utilized adhering to the principles of ALARA. COMPARISON STUDY: None. FINDINGS: There is a normal caliber thoracic aorta with no evidence for dissection. There is no evidence for pulmonary embolus. No pleural effusions. No pneumothorax. The liver and spleen are unremarkable. No mediastinal or hilar lymphadenopathy. The central airways are patent. The lungs are clear. Mild circumferential thickening of the upper to mid esophagus. IMPRESSION: 1. No evidence for pulmonary embolus. 2. Questionable mild circumferential thickening of the upper to mid esophagus. This could represent a mild esophagitis. ACT 112: Negative or not required by law. Electronically signed by: Jaspreet Tyson M.D. 10/03/2022 8:01 AM Hospital Course (1) COVID-19: (2) Elevated troponin: (3) Chest pain: (4) Tachycardia: 32-year-old female with 15 weeks presented to with acute COVID infection associated with congestion possible mild infiltrate on CTA chest Use [id number] Sudafed that developed increased heart rate, tachycardia and chest discomfort. CTA chest on admission showed no evidence of PE Troponins peaked to 4582, now trending down No EKG changes of ischemia with normal LV systolic function and no evidence of cardiac involvement at least at this point Echo showed normal wall motion with preserved LV function with ejection fraction 60 to 65% Cardiology on board continue labetalol 100 mg twice daily Continue monitor on telemetry Clinically improved significantly case discussed with cardiology. Ok from cardiology standpoint to discharge home today COVID-19 Saturating well on room air Does not meet the criteria for remdesivir and dexamethasone since there is no hypoxic Continue monitor closely 15 weeks Follow-up with [facility] outpatient DVT prophylaxis SCD and encourage patient to ambulate Status full code Total Time Total Time Spent Total Time Spent (In Minutes): 35 minutes Discharge Plan Discharge Items Patient Disposition: Home - Self-Care Reason For Visit: CP, TROP ELEV, COVID Discharge Diagnosis: (1) COVID-19: (2) Elevated troponin: (3) Chest pain: (4) Tachycardia: (5) (6) Acute myocarditis Condition on Discharge: Good Activity: Resume your previous activity Non-emergency contact: Primary Care Provider and Shear Operator Call non-emergency contact if: you have any medication questions and your symptoms worsen Follow-up/Referrals: Edison Sanford MD [Physician] - (Date & Time 10/05/2022 2:15 PM Provider [facility] Department Cardiac Studies, [facility] Date & Time 10/13/2022 8:00 AM Provider Edison Sanford MD Department Cardiology, [facility] ) Ruma Sears DO [Primary Care Provider] - (Date & Time 10/13/2022 1:40 PM Provider Ruma Sears DO Department Family Practice [facility] ) Diet: Regular Addtl Attending Provider Instructions: 10/05/2022 2:15 PM Provider [facility] Department Cardiac Studies, [facility] (heart monitor to wear) Follow with cardiology 10/13/2022 8:00 AM Provider Edison Sanford MD Department Cardiology, [facility] Follow up with your primary care provider 10/13/2022 @1:40 PM Ruma Sears DO Department Family Practice [facility] Follow up with your OBGYN Seek urgent medical attention if you develop any chest pain and Shortness of breath Pending Studies at Discharge: No Stand-Alone Forms: My [facility] [place], Smoking Cessation Medications and DC Order Prescriptions: New labetalol 100 mg Tablet 100 mg PO BID 30 Days Qty: 60 0RF Continued prenat.vits,hector,[id number] Tablet 1 tab PO DAILY acetaminophen [Tylenol Extra Strength] 500 mg Tablet 1,000 mg PO Q6H PRN (Reason: Pain) Discontinued pseudoephedrine HCl [Sudafed 12 Hour] 120 mg Tablet Extended Release 120 mg PO Q12H PRN (Reason: ..) Discharge Orders: Discharge Order (Routine); Ordered 10/05/22 Ordered By: Anali Miller Admission Data Admit Date/Time: 10/05/22 00:57 Attending Provider: Anali Miller Admit Provider: Matty Garcia Primary Care Provider: Ruma Sears Other Providers: Yessi Sr ; Edison Sanford Other Interventions: Discharge Summary Assessment (RN) Last Done: 10/05/22 12:47
== END 2022-10-05 13:21 | disposition home or self-care (01) | DRG 831 ==
LOC: ED 20:45 → EDINP 20:45 → SUATTDRO 10-03 03:09 → 2S 10-03 05:45

== ENCOUNTER 2023-03-07 21:19 | Inpatient (IN) ==
[2023-03-07] MEDS ORDERED: LIDOCAINE 1% LOCAL 20 ML VIAL INFIL PRN (21:55)
[2023-03-07] MEDS ORDERED: OXYTOCIN 30 UNITS/500 ML BAG IV PRN ×2 (21:55)
[2023-03-07] MEDS: LACTATED RINGER'S 1,000 ML IV PRN ×2 (22:00→23:00)
--- NOTE | 2023-03-07 22:02 | History & Physical Report ---
Date of Service March 07, 2023 Assessment & Plan (1) Encounter for supervision of normal in multigravida, antepartum: Plan: Admit to L&D. EFM/toco. Labs. IV. She plans for epidural. Unsure time of rupture of membranes. Discussed that would recommend augmentation with pitocin to achieve labor contraction pattern to allow labor to progress. She is agreeable with this plan. History of Present Illness Chief Complaint: leaking fluid Primary Care Provider: Ruma Sears, DO 32yo @ 39 04/06, presented to L&D with concern that she was continuing to have cervical mucus plug leakage. She was seen 03/05/23 at L&D with the same complaint, with findings of exam negative for rupture, cervix dilated 1cm. Ultrasound on 03/05 showed adequate amniotic fluid. She has noticed gushes of greenish/yellow fluid both yesterday and today. + movement, no vaginal bleeding. Some cramping, not really feeling labor contractions. No fever/chills. complicated by: COVID with myocarditis seeing cards--will see after delivery on labetalol start baby asa MFM consult (12/21/22) *Growth US Q4wks @ 24wks Flu shot given 08/20/22 SB hyperechoic foci in stomach on anatomy us.--isolated repeat us at 24 weeks f/u u/s [facility] [place]/15/23--stable, no changes, no intervention Induction March 22 40 weeks, on labetalol Allergies Allergy/AdvReac Type Severity Reaction Status Date / Time Penicillins Allergy Intermediate Hives Verified 03/03/23 12:05 pseudoephedrine AdvReac Intermediate Tachycardia Verified 03/03/23 12:05 [facility] Home Medications Medication Instructions Recorded Confirmed Type prenat.vits,hector,jou-jfjm-yeptp 1 tab PO DAILY 08/10/22 03/07/23 History labetalol 100 mg tablet 100 mg PO BID 12/08/22 03/07/23 History famotidine 20 mg tablet 20 mg PO DAILY 03/05/23 03/07/23 History Patient History Medical History Chest pain COVID-19 Elevated d-dimer Elevated troponin Encounter for pre-operative examination Hx of varicella SOB (shortness of breath) Family History Father Anemia Cirrhosis Grandmother (Maternal) Brain cancer Grandmother (Paternal) Breast cancer Grandfather (Maternal) Heart disease Mother Hypertension Social History Smoking Status: Never smoker Do You Dip or Chew Tobacco: No; Hx Alcohol Use: No Hx Substance Use: No Preferred Language: Armenian Communication Ability: Effective Recessing Machine Operator Required: No Beliefs That Will Affect Care: None marital status: marital status details: Abdullahi Hussein [phone] Current Living Situation: Spouse Current Living Situation Comment: lives with spouse, son, cats-spouse changing litter current occupational status: employed 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 EFW 7-8. Limited bedside ultrasound: cephalic, anterior placenta. No measurable pockets o f amniotic fluid. FHT Cat 1, +accels [place] Q 2-5 min Constitutional: WD/WN, vitals as above Respiratory: normal respiratory effort, lungs clear to auscultation no respiratory distress Cardiovascular: Rate/Rhythm: regular rate and regular rhythm Gastrointestinal (Abdomen): Inspection/Auscultation: abdomen normal to inspection Percussion/Palpation: abdomen soft; abdomen nontender Gravid. No s/s chorio or abruption. Skin: no rashes, warm and dry Psychiatric: A+Ox3, euthymic affect Results & Data Vital Signs (Past 12 Hours) Vital Signs Pulse BP 03/07/23 21:30 87 120/79 Coding Level of Care Code None Diagnoses Encounter for supervision of normal in multigravida, antepartum Z34.80
[2023-03-07] MEDS ORDERED: SODIUM CHLORIDE 0.9% PF INJ 10 ML VIAL ONE (22:20)
[2023-03-07] MEDS ORDERED: LIDOCAINE 2%/EPINEPHRINE 1:200,000 20 ML PF ONE (22:20)
[2023-03-07] MEDS ORDERED: BUPIVACAINE 0.25% PF 30 ML VIAL ONE (22:20)
[2023-03-07] MEDS ORDERED: fentaNYL 2MCG/ML ROPIVACAINE 1.25MG/ML 100 ML BAG EPI ONE (22:21)
[2023-03-07] MEDS ORDERED: ePHEDrine sulfate 50 MG/ML AMP ONE (22:22)
[2023-03-07 22:51] LABS: Hematocrit (blood only) 32.6 % (37.0-47.0); Hemoglobin 11.3 g/dl (12.0-16.0); Mean Corpuscular Hemoglobin 31.7 pg (25.0-34.0); Mean Corpuscular Hgb Conc 34.7 g/dL (32.0-36.0); Mean Corpuscular Volume 91.3 fL (80.0-100.0); Mean Platelet Volume 9.5 fL (9.4-12.4); Platelet Count 277 K/uL (130-400); RDW Coefficient of Variation 13.8 % (11.5-14.5); RDW Standard Deviation 46.4 fL (36.4-46.3); Red Blood Count 3.57 M/uL (4.20-5.40); White Blood Count 11.16 K/ul (4.8-10.8)
[2023-03-07] MEDS ORDERED: fentaNYL 2MCG/ML ROPIVACAINE 1.25MG/ML 100 ML BAG EPI PRN (22:56)
[2023-03-07] MEDS ORDERED: LIDOCAINE 2%/EPINEPHRINE 1:200,000 20 ML PF EPI STA (22:56)
[2023-03-07] MEDS ORDERED: BUPIVACAINE 0.25% PF 30 ML VIAL EPI STA (22:56)
[2023-03-07] MEDS ORDERED: LIDOCAINE 2% MPF LOCAL 5 ML VIAL EPI PRN (22:56)
[2023-03-07] MEDS ORDERED: ROPIVACAINE 0.5% PF 5 MG/ML 20 ML VIAL EPI PRN (22:56)
[2023-03-07] MEDS ORDERED: SODIUM CHLORIDE 0.9% PF INJ 10 ML VIAL EPI PRN (22:56)
[2023-03-07] MEDS ORDERED: NALOXONE HCL 1 MG in SODIUM CHLORIDE 0.9% 1000ML 1,000 ML IV PRN (22:56)
[2023-03-07] MEDS ORDERED: ePHEDrine sulfate 50 MG/ML AMP IV PRN (22:56)
[2023-03-07] MEDS ORDERED: NALBUPHINE HCL INJ 10 MG/ML AMP IV PRN (22:56)
[2023-03-07] MEDS ORDERED: fentaNYL citrate PF 100 MCG/2 ML VIAL EPI PRN (22:56)
[2023-03-07] MEDS ORDERED: NALOXONE HCL 0.4 MG/1 ML VIAL/CARP IV PRN (22:56)
[2023-03-07] MEDS ORDERED: SODIUM CHLORIDE 0.9% PF INJ 10 ML VIAL EPI STA (22:56)
[2023-03-07] MEDS ORDERED: fentaNYL citrate PF 100 MCG/2 ML VIAL EPI STA (22:56)
[2023-03-07] MEDS ORDERED: diphenhydrAMINE 50 MG/ML VIAL IV PRN (22:56)
[2023-03-07] MEDS ORDERED: BUPIVACAINE 0.25% PF 30 ML VIAL EPI PRN (22:56)
--- NOTE | 2023-03-07 23:00 | Anesthesiology Consultation ---
Date of Service March 07, 2023 Assessment & Plan (1) Encounter for pre-operative examination: Chart Review Chart Review: Patient NOT seen in Pre Admission Testing and Acceptable Risk for Labor Epidural Consults Requested none History Height/Weight Height: 5 ft 2 in Weight: 69.4 kg Allergies Allergy/AdvReac Type Severity Reaction Status Date / Time Penicillins Allergy Intermediate Hives Verified 03/03/23 12:05 pseudoephedrine AdvReac Intermediate Tachycardia Verified 03/03/23 12:05 [From [facility]] Medications Home Medications Medication Instructions Recorded Confirmed Last Taken prenat.vits,hector,zcq-fnhx-kvidz 1 tab PO DAILY 08/10/22 03/07/23 03/06/23 labetalol 100 mg tablet 100 mg PO BID 12/08/22 03/07/23 03/07/23 famotidine 20 mg tablet 20 mg PO DAILY 03/05/23 03/07/23 03/07/23 Active Medications Generic Name Dose Route Start Last Admin Trade Name Freq PRN Reason Stop Dose Admin Lactated Ringer's 1,000 mls @ 125 mls/hr 03/07/23 21:55 03/07/23 23:00 Lr IV 03/09/23 21:54 125 mls/hr .Q8H PRN Administration L&D Protocol Protocol Past Medical History Medical History (Updated 03/07/23 @ 22:59 by Óscar Govea MD) Chest pain COVID-19 Elevated d-dimer Elevated troponin Hx of varicella SOB (shortness of breath) myocarditis from covid. resolved. Exercise / Class Metabolic Activity II 4-5 Yardwork/Stairs/Walk up hill Past Family History Family History Father Anemia Cirrhosis Grandmother (Maternal) Brain cancer Grandmother (Paternal) Breast cancer Grandfather (Maternal) Heart disease Mother Hypertension Social History Smoking Status: Never smoker Do You Dip or Chew Tobacco: No Hx Alcohol Use: No Hx Substance Use: No substance use type: does not use Physical Exam Vital Signs Last Vital Signs Temp 36.8 C 03/07/23 21:57 Pulse 94 H 03/07/23 23:25 Resp 18 03/07/23 21:57 BP 102/57 L 03/07/23 23:25 Pulse Ox 94 03/07/23 23:25 Testing Laboratory Results 03/07/23 22:22
[2023-03-07] MEDS: fentaNYL citrate PF 100 MCG/2 ML VIAL ONE (23:26)
--- NOTE | 2023-03-08 00:21 | Labor Progress Brief Note ---
Date of Service March 08, 2023 Subjective Comfortable with epidural. FHT Cat 1 [place] Q 2 Continue labor. Assessment & Plan Admission and Anticipated Discharge Date Admission Date: March 07, 2023 Results & Data Vital Signs (Past 12 Hours) Vital Signs Temp Pulse Resp BP Pulse Ox 03/07/23 21:57 36.8 C 18 03/08/23 00:18 86 121/70 98 03/08/23 00:14 78 116/68 03/08/23 00:13 81 97 03/08/23 00:08 94 H 97 03/08/23 00:07 87 101/58 L 03/08/23 00:05 80 104/59 L 03/08/23 00:03 90 104/61 97 03/08/23 00:01 85 104/56 L 03/07/23 23:58 97 03/07/23 23:58 98 H 03/07/23 23:59 94 H 03/07/23 23:59 92/50 L 03/07/23 23:57 85 03/07/23 23:57 103/58 L 03/07/23 23:55 82 03/07/23 23:55 105/67 03/07/23 23:53 97 03/07/23 23:53 94 H 03/07/23 23:53 83 03/07/23 23:53 97/60 L 03/07/23 23:50 16 03/07/23 23:50 16 03/07/23 23:51 88 03/07/23 23:51 107/56 L 03/07/23 23:48 96 03/07/23 23:48 84 03/07/23 23:49 86 03/07/23 23:49 106/55 L 03/07/23 23:47 76 03/07/23 23:47 111/56 L 03/07/23 23:45 75 03/07/23 23:45 105/54 L 03/07/23 23:43 96 03/07/23 23:43 94 H 03/07/23 23:44 93 H 03/07/23 23:44 116/62 03/07/23 23:42 16 03/07/23 23:42 36.8 C 16 03/07/23 23:41 78 03/07/23 23:41 105/59 L 03/07/23 23:29 18 03/07/23 23:29 18 03/07/23 23:39 81 03/07/23 23:39 101/66 03/07/23 23:38 96 03/07/23 23:38 82 03/07/23 23:36 91 H 03/07/23 23:36 120/56 L 03/07/23 23:33 97 03/07/23 23:33 85 03/07/23 23:33 100/59 L 03/07/23 23:31 93 03/07/23 23:31 75 03/07/23 23:31 99/57 L 03/07/23 23:28 97 03/07/23 23:28 83 03/07/23 23:29 83 03/07/23 23:29 103/59 L 03/07/23 23:25 18 03/07/23 23:25 18 03/07/23 23:27 77 03/07/23 23:27 101/56 L 03/07/23 23:25 94 03/07/23 23:25 94 H 03/07/23 23:25 102/57 L 03/07/23 23:23 95 03/07/23 23:23 76 03/07/23 23:23 78 03/07/23 23:23 114/75 03/07/23 23:18 95 03/07/23 23:18 89 03/07/23 23:13 97 03/07/23 23:13 83 03/07/23 23:08 97 03/07/23 23:08 96 H 03/07/23 23:03 96 03/07/23 23:03 76 03/07/23 22:58 97 03/07/23 22:58 81 03/07/23 22:53 97 03/07/23 22:53 85 03/07/23 22:48 97 03/07/23 22:48 87 03/07/23 22:37 97 03/07/23 22:37 82 03/07/23 22:32 97 03/07/23 22:32 83 03/07/23 22:27 97 03/07/23 22:27 76 03/07/23 22:22 97 03/07/23 22:22 81 03/07/23 22:17 98 03/07/23 22:17 88 03/07/23 21:30 87 120/79 Coding Level of Care Code None Diagnoses
[2023-03-08] MEDS: fentaNYL citrate PF 100 MCG/2 ML VIAL ONE (00:48)
--- NOTE | 2023-03-08 02:02 | Labor Progress Brief Note ---
Date of Service March 08, 2023 Subjective Called to patient room to place lee catheter - as it is difficult to locate urethral orifice with urethral cyst. Comfortable with ctx. FHT Cat 1 [place] Q2 SVE 2-3/50/-3 Lee catheter placed - urethra is approx 1-2 o'clock on edge of cyst. Will allow lee to drain bladder, continue pitocin/contractions, place in high alex's position. Assessment & Plan Admission and Anticipated Discharge Date Admission Date: March 07, 2023 Results & Data Vital Signs (Past 12 Hours) Vital Signs Temp Pulse Resp BP Pulse Ox 03/07/23 21:57 36.8 C 18 03/08/23 01:58 99 H 95 03/08/23 01:53 89 97 03/08/23 01:48 85 97 03/08/23 01:43 74 98 03/08/23 01:38 81 96 03/08/23 01:33 88 96 03/08/23 01:30 86 89/56 L 03/08/23 01:28 86 95 03/08/23 01:23 84 96 03/08/23 01:18 78 97 03/08/23 01:15 83 99/56 L 03/08/23 01:13 83 97 03/08/23 01:08 78 97 03/08/23 01:05 83 112/53 L 03/08/23 01:03 85 97 03/08/23 00:58 82 97 03/08/23 00:53 89 97 03/08/23 00:48 95 H 96 03/08/23 00:43 83 139/69 98 03/08/23 00:39 88 129/60 03/08/23 00:38 90 97 03/08/23 00:33 77 97 03/08/23 00:32 81 113/62 03/08/23 00:28 98 03/08/23 00:28 92 H 03/07/23 23:57 16 03/07/23 23:57 16 03/08/23 00:28 86 121/72 03/08/23 00:17 18 03/08/23 00:17 18 03/08/23 00:23 83 96 03/08/23 00:24 79 120/64 03/08/23 00:18 86 121/70 98 03/08/23 00:14 78 116/68 03/08/23 00:13 81 97 03/08/23 00:08 94 H 97 03/08/23 00:07 87 101/58 L 03/08/23 00:05 80 104/59 L 03/08/23 00:03 90 104/61 97 03/08/23 00:01 85 104/56 L 03/07/23 23:58 97 03/07/23 23:58 98 H 03/07/23 23:59 94 H 03/07/23 23:59 92/50 L 03/07/23 23:57 85 03/07/23 23:57 103/58 L 03/07/23 23:55 82 03/07/23 23:55 105/67 03/07/23 23:53 97 03/07/23 23:53 94 H 03/07/23 23:53 83 03/07/23 23:53 97/60 L 03/07/23 23:50 16 03/07/23 23:50 16 03/07/23 23:51 88 03/07/23 23:51 107/56 L 03/07/23 23:48 96 03/07/23 23:48 84 03/07/23 23:49 86 03/07/23 23:49 106/55 L 03/07/23 23:47 76 03/07/23 23:47 111/56 L 03/07/23 23:45 75 03/07/23 23:45 105/54 L 03/07/23 23:43 96 03/07/23 23:43 94 H 03/07/23 23:44 93 H 03/07/23 23:44 116/62 03/07/23 23:42 16 03/07/23 23:42 36.8 C 16 03/07/23 23:41 78 03/07/23 23:41 105/59 L 03/07/23 23:29 18 03/07/23 23:29 18 03/07/23 23:39 81 03/07/23 23:39 101/66 03/07/23 23:38 96 03/07/23 23:38 82 03/07/23 23:36 91 H 03/07/23 23:36 120/56 L 03/07/23 23:33 97 03/07/23 23:33 85 03/07/23 23:33 100/59 L 03/07/23 23:31 93 03/07/23 23:31 75 03/07/23 23:31 99/57 L 03/07/23 23:28 97 03/07/23 23:28 83 03/07/23 23:29 83 03/07/23 23:29 103/59 L 03/07/23 23:25 18 03/07/23 23:25 18 03/07/23 23:27 77 03/07/23 23:27 101/56 L 03/07/23 23:25 94 03/07/23 23:25 94 H 03/07/23 23:25 102/57 L 03/07/23 23:23 95 03/07/23 23:23 76 03/07/23 23:23 78 03/07/23 23:23 114/75 03/07/23 23:18 95 03/07/23 23:18 89 03/07/23 23:13 97 03/07/23 23:13 83 03/07/23 23:08 97 03/07/23 23:08 96 H 03/07/23 23:03 96 03/07/23 23:03 76 03/07/23 22:58 97 03/07/23 22:58 81 03/07/23 22:53 97 03/07/23 22:53 85 03/07/23 22:48 97 03/07/23 22:48 87 03/07/23 22:37 97 03/07/23 22:37 82 03/07/23 22:32 97 03/07/23 22:32 83 03/07/23 22:27 97 03/07/23 22:27 76 03/07/23 22:22 97 03/07/23 22:22 81 03/07/23 22:17 98 03/07/23 22:17 88 03/07/23 21:30 87 120/79 Coding Level of Care Code None Diagnoses
--- NOTE | 2023-03-08 05:09 | Labor Progress Brief Note ---
Date of Service March 08, 2023 Subjective FHT with variable decels, returned to Cat 1 with repositioning [place] Q 2 7-8/100/0 Anticipate . Assessment & Plan Admission and Anticipated Discharge Date Admission Date: March 07, 2023 Results & Data Vital Signs (Past 12 Hours) Vital Signs Temp Pulse Resp BP Pulse Ox 03/07/23 21:57 36.8 C 18 03/08/23 05:03 100 H 97 03/08/23 05:01 109 H 139/77 03/08/23 04:58 96 H 97 03/08/23 04:53 101 H 97 03/08/23 04:48 96 H 98 03/08/23 04:46 83 134/64 03/08/23 04:43 107 H 97 03/08/23 04:38 87 99 03/08/23 04:33 83 97 03/08/23 04:31 75 99/50 L 03/08/23 04:28 80 98 03/08/23 04:23 88 96 03/08/23 04:18 80 96 03/08/23 04:16 85 93/51 L 03/08/23 04:13 79 97 03/08/23 04:08 88 98 03/08/23 04:03 82 96 03/08/23 04:01 81 105/55 L 03/08/23 03:58 83 97 03/08/23 03:53 83 96 03/08/23 03:48 85 96 03/08/23 03:47 79 95/52 L 03/08/23 03:43 89 97 03/08/23 03:38 93 H 97 03/08/23 03:33 86 96 03/08/23 03:31 86 89/51 L 03/08/23 03:24 18 03/08/23 03:24 37.1 C 18 03/08/23 03:28 87 97 03/08/23 03:23 88 98 03/08/23 03:18 82 97 03/08/23 03:15 78 96/54 L 03/08/23 03:13 82 96 03/08/23 03:08 73 97 03/08/23 03:03 88 98 03/08/23 03:00 89 99/64 L 03/08/23 02:58 84 95 03/08/23 02:53 95 H 95 03/08/23 02:48 98 H 95 03/08/23 02:46 90 97/60 L 03/08/23 02:43 92 H 96 03/08/23 02:38 88 95 03/08/23 02:33 87 95 03/08/23 02:30 84 96/58 L 03/08/23 02:28 83 95 03/08/23 02:23 94 H 95 03/08/23 02:18 84 96 03/08/23 02:17 82 94 03/08/23 02:15 81 99/56 L 03/08/23 02:13 92 H 95 03/08/23 02:10 82 94 03/08/23 02:08 87 95 03/08/23 02:03 37.3 C 82 18 95 03/08/23 02:02 79 94 03/08/23 02:00 85 95/55 L 03/08/23 01:58 99 H 95 03/08/23 01:53 89 97 03/08/23 01:48 85 97 03/08/23 01:43 74 98 03/08/23 01:38 81 96 03/08/23 01:33 88 96 03/08/23 01:30 86 89/56 L 03/08/23 01:28 86 95 03/08/23 01:23 84 96 03/08/23 01:18 78 97 03/08/23 01:15 83 99/56 L 03/08/23 01:13 83 97 03/08/23 01:08 78 97 03/08/23 01:05 83 112/53 L 03/08/23 01:03 85 97 03/08/23 00:58 82 97 03/08/23 00:53 89 97 03/08/23 00:48 95 H 96 03/08/23 00:43 83 139/69 98 03/08/23 00:39 88 129/60 03/08/23 00:38 90 97 03/08/23 00:33 77 97 03/08/23 00:32 81 113/62 03/08/23 00:28 98 03/08/23 00:28 92 H 03/07/23 23:57 16 03/07/23 23:57 16 03/08/23 00:28 86 121/72 03/08/23 00:17 18 03/08/23 00:17 18 03/08/23 00:23 83 96 03/08/23 00:24 79 120/64 03/08/23 00:18 86 121/70 98 03/08/23 00:14 78 116/68 03/08/23 00:13 81 97 03/08/23 00:08 94 H 97 03/08/23 00:07 87 101/58 L 03/08/23 00:05 80 104/59 L 03/08/23 00:03 90 104/61 97 03/08/23 00:01 85 104/56 L 03/07/23 23:58 97 03/07/23 23:58 98 H 03/07/23 23:59 94 H 03/07/23 23:59 92/50 L 03/07/23 23:57 85 03/07/23 23:57 103/58 L 03/07/23 23:55 82 03/07/23 23:55 105/67 03/07/23 23:53 97 03/07/23 23:53 94 H 03/07/23 23:53 83 03/07/23 23:53 97/60 L 03/07/23 23:50 16 03/07/23 23:50 16 03/07/23 23:51 88 03/07/23 23:51 107/56 L 03/07/23 23:48 96 03/07/23 23:48 84 03/07/23 23:49 86 03/07/23 23:49 106/55 L 03/07/23 23:47 76 03/07/23 23:47 111/56 L 03/07/23 23:45 75 03/07/23 23:45 105/54 L 03/07/23 23:43 96 03/07/23 23:43 94 H 03/07/23 23:44 93 H 03/07/23 23:44 116/62 03/07/23 23:42 16 03/07/23 23:42 36.8 C 16 03/07/23 23:41 78 03/07/23 23:41 105/59 L 03/07/23 23:29 18 03/07/23 23:29 18 03/07/23 23:39 81 03/07/23 23:39 101/66 03/07/23 23:38 96 03/07/23 23:38 82 03/07/23 23:36 91 H 03/07/23 23:36 120/56 L 03/07/23 23:33 97 03/07/23 23:33 85 03/07/23 23:33 100/59 L 03/07/23 23:31 93 03/07/23 23:31 75 03/07/23 23:31 99/57 L 03/07/23 23:28 97 03/07/23 23:28 83 03/07/23 23:29 83 03/07/23 23:29 103/59 L 03/07/23 23:25 18 03/07/23 23:25 18 03/07/23 23:27 77 03/07/23 23:27 101/56 L 03/07/23 23:25 94 03/07/23 23:25 94 H 03/07/23 23:25 102/57 L 03/07/23 23:23 95 03/07/23 23:23 76 03/07/23 23:23 78 03/07/23 23:23 114/75 03/07/23 23:18 95 03/07/23 23:18 89 03/07/23 23:13 97 03/07/23 23:13 83 03/07/23 23:08 97 03/07/23 23:08 96 H 03/07/23 23:03 96 03/07/23 23:03 76 03/07/23 22:58 97 03/07/23 22:58 81 03/07/23 22:53 97 03/07/23 22:53 85 03/07/23 22:48 97 03/07/23 22:48 87 03/07/23 22:37 97 03/07/23 22:37 82 03/07/23 22:32 97 03/07/23 22:32 83 03/07/23 22:27 97 03/07/23 22:27 76 03/07/23 22:22 97 03/07/23 22:22 81 03/07/23 22:17 98 03/07/23 22:17 88 03/07/23 21:30 87 120/79 Coding Level of Care Code None Diagnoses
[2023-03-08] MEDS: LACTATED RINGER'S 1,000 ML IV PRN (05:10)
--- NOTE | 2023-03-08 05:50 | Delivery Summary ---
Vaginal Delivery Summary Date of Service March 08, 2023 Vaginal Delivery Summary and 1st Degree LAC Vaginal Delivery Summary: Pre-delivery diagnoses: 32yo @ 38 0/7, PROM, h/o COVID myocarditis, echogenic focus on stomach Post-delivery diagnoses: same Procedure: spontaneous vaginal delivery, repair of 1st degree perineal laceration Surgeon: Raven Charles DO Complications: none Findings: Viable male . Apgars: 8/9 . Weight pending, please see nursery records Estimated blood loss: 300ml Description of delivery: The patient progressed to complete with epidural anesthesia. She then began to push. She spontaneously vaginally delivered a viable from the cephalic presentation. The head delivered in CASI position. The anterior shoulder delivered, followed by the posterior shoulder, followed by the body. The baby was placed on mother's abdomen and a spontaneous cry was heard. Delayed cord clamping was employed, and the cord was doubly clamped and cut. Cord blood was obtained. The placenta was delivered spontaneously intact with a 3-vessel cord. The uterus and vagina were swept of clots and debris. IV pitocin was given. The uterus became firm. The cervix, vagina, and perineum were inspected and a hemostatic 1st degree laceration was noted, patient desired repair, and repaired in standard fashion with 3-0 Vicryl. Urethral cyst (present prior to ) was still intact at end of delivery. Excellent hemostasis was observed. The mother and baby are recovering in stable and good condition in the room. Sponge, needle and instrument counts were correct x 2. Raven Charles DO [facility] Vaginal Delivery Charge Vaginal Delivery Codes: 79414 global code for the antepartum, delivery, and post- Delivery Type Details: and 1st Degree LAC
[2023-03-08] MEDS ORDERED: bisacodyL 10 MG SUPP PR PRN (05:55)
[2023-03-08] MEDS ORDERED: BENZOCAINE 20% AER SPR 82.5 GM CAN EXT PRN (05:55)
[2023-03-08] MEDS ORDERED: OXYTOCIN 30 UNITS/500 ML BAG IV PRN (05:55)
[2023-03-08] MEDS ORDERED: FAMOTIDINE 20 MG TAB PO PRN (05:55)
[2023-03-08] MEDS ORDERED: ACETAMINOPHEN 325 MG TAB PO PRN (05:55)
[2023-03-08] MEDS ORDERED: DIPHTHERIA/TETANUS/PERTUSSIS 0.5mL SYR/VIAL (Age 7+yrs) IM ONE (05:55)
[2023-03-08] MEDS ORDERED: oxyCODONE/ACETAMINOPHEN 5mg/325mg TAB PO PRN (05:55)
--- NOTE | 2023-03-08 07:50 | Anesthesia Procedure Note ---
Date of Service March 08, 2023 Anesthesia Post Epidural Note Vital Signs Vital Signs: Temp Pulse Resp BP Pulse Ox 37.1 C 105 H 18 114/59 L 97 03/08/23 03:24 03/08/23 07:40 03/08/23 06:45 03/08/23 07:40 03/08/23 05:38 Notes Mental Status: alert / awake / arousable and participated in evaluation Nausea / Vomiting: adequately controlled Pain: adequately controlled Airway Patency, RR, SpO2: stable & adequate BP & HR: stable & adequate Hydration State: stable & adequate Neuraxial Anesthesia: was administered and sensory block is resolving Anesthetic Complications: no major complications apparent Epidural: Removed without complications and With tip intact
[2023-03-08] MEDS: LABETALOL HCL 100 MG TAB PO SCH ×2 (08:19→19:54)
[2023-03-08] MEDS: DOCUSATE SODIUM 100 MG CAP PO SCH ×2 (08:20→19:54)
[2023-03-08] MEDS: IBUPROFEN 600 MG TAB PO PRN ×2 (08:20→19:54)
[2023-03-08] MEDS: PRENATAL VITAMIN 1 TAB PO SCH (08:20)
[2023-03-08] MEDS: HYDROCORTISONE ACETATE 25 MG SUPP PR PRN (19:54)
[2023-03-09 06:23] LABS: Hematocrit (blood only) 32.4 % (37.0-47.0); Hemoglobin 11.1 g/dl (12.0-16.0)
--- NOTE | 2023-03-09 06:42 | Obstetrical Progress Note ---
Date of Service March 09, 2023 Assessment & Plan (1) Encounter for pre-operative examination: (2) Myocarditis due to COVID-19 virus: (3) Encounter for supervision of normal in multigravida, antepartum: Plan Beatrice is a 32 y/o female who is PPD #1 following delivery at 38 weeks. -Meeting all milestones -Vital signs reviewed and WNL -Continue Labetalol per cardiology for myocarditis -Follow up in 6 weeks for appointment -Continue routine care -Anticipate d/c tomorrow as baby needs to stay for 48 hours Admission and Anticipated Discharge Date Admission Date: March 07, 2023 Supervising Physician Co-Signing Physician Notes patient seen with resident and agree with the above findings and plan. Routine OB care. Subjective Beatrice is a 32 y/o female who is PPD #1 following delivery at 38 weeks. Her was complicated by COVID with myocarditis (on Labetalol and baby aspirin) and echogenic foci of stomach. She reports feeling well overall this morning. Pain well managed on analgesics. Voiding without issue. Tolerating meals overnight and able to ambulate some. Has some persistent lochia with some improvement this morning. Currently breast feeding. Review of Systems Constitutional: no fever, no chills and no sweats Respiratory: no cough, no dyspnea and no wheezing Cardiovascular: no chest pain, no palpitations and no calf pain Genitourinary: no dysuria Neurologic: no headache(s) Physical Exam Constitutional: WD/WN, vitals as above no acute distress Eyes: Anicteric sclera. Respiratory: no respiratory distress Cardiovascular: Extremities: no edema Regular heart rate, limbs well perfused. Gastrointestinal (Abdomen): Inspection/Auscultation: normal bowel sounds Genitourinary: Uterine fundus firm, palpable below the umbilicus. Results & Data Vital Signs (Past 12 Hours) Vital Signs Temp Pulse Resp BP BP Pulse Ox O2 Del Method 03/09/23 04:00 36.5 C 74 16 94/58 L 97 Room Air 03/09/23 00:30 36.5 C 81 16 101/66 98 Room Air 03/08/23 20:00 36.5 C 76 16 103/66 97 Room Air Resident Activity Tracking Resident Involvement: Resident Care Provided Care Provided: OB Delivery
[2023-03-09] MEDS: PRENATAL VITAMIN 1 TAB PO SCH (08:12)
[2023-03-09] MEDS: IBUPROFEN 600 MG TAB PO PRN ×2 (08:12→23:37)
[2023-03-09] MEDS: LABETALOL HCL 100 MG TAB PO SCH ×2 (08:12→20:07)
[2023-03-09] MEDS: HYDROCORTISONE ACETATE 25 MG SUPP PR PRN (08:12)
[2023-03-09] MEDS: DOCUSATE SODIUM 100 MG CAP PO SCH ×2 (08:12→20:05)
[2023-03-09] MEDS ORDERED: bisacodyL 5 MG TABEC PO SCH (20:00)
--- NOTE | 2023-03-10 05:57 | Obstetrical Progress Note ---
Date of Service March 10, 2023 Assessment & Plan (1) Encounter for pre-operative examination: (2) Myocarditis due to COVID-19 virus: (3) Encounter for supervision of normal in multigravida, antepartum: Plan Beatrice is a 32 y/o female who is PPD #2 following delivery at 38 weeks. -Meeting all milestones -Vital signs reviewed and WNL -Continue Labetalol per cardiology for myocarditis -Follow up in 6 weeks for appointment -Continue routine care -Anticipate d/c today Admission and Anticipated Discharge Date Admission Date: March 07, 2023 Supervising Physician Co-Signing Physician Notes Resident Physician Supervision Note: I interviewed and examined the patient. Discussed with Dr. Banuelos and agree with findings and plan as documented in the note. Any exceptions or clarifications are listed here: [ ] Documented By: Lucero Benson MD, FACOG Subjective Beatrice is a 32 y/o female who is PPD #2 following delivery at 38 weeks. Her was complicated by COVID with myocarditis (on Labetalol) and echogenic foci of stomach. She reports feeling well overall this morning. Pain well managed on analgesics. Voiding without issue. Tolerating meals overnight and able to ambulate some. Has some persistent lochia with some improvement this morning. Currently bottle feeding. Review of Systems Constitutional: no fever, no chills and no sweats Respiratory: no cough, no dyspnea and no wheezing Cardiovascular: no chest pain, no palpitations and no calf pain Genitourinary: no dysuria Neurologic: no headache(s) Physical Exam Constitutional: WD/WN, vitals as above no acute distress Respiratory: no respiratory distress Auscultation: lungs clear to ausculta tion bilaterally; no rales, no rhonchi and no wheezes Cardiovascular: RRR, no murmur, no edema Extremities: no calf tenderness and no edema Gastrointestinal (Abdomen): Inspection/Auscultation: normal bowel sounds Genitourinary: Uterine fundus firm, palpable below umbilicus. Results & Data Vital Signs (Past 12 Hours) Vital Signs Temp Pulse Resp BP Pulse Ox O2 Del Method 03/09/23 23:35 36.6 C 70 18 110/70 03/09/23 20:00 36.5 C 84 18 112/70 99 Room Air Resident Activity Tracking Resident Involvement: Resident Care Provided Care Provided: OB Delivery
[2023-03-10] MEDS: DOCUSATE SODIUM 100 MG CAP PO SCH (09:01)
[2023-03-10] MEDS: LABETALOL HCL 100 MG TAB PO SCH (09:01)
[2023-03-10] MEDS: PRENATAL VITAMIN 1 TAB PO SCH (09:01)
== END 2023-03-10 10:04 | disposition home or self-care (01) | DRG 805 ==
LOC: OPB 21:19 → 4S1 21:20 → 4E2 03-08 07:59